=== PATIENT | male | born 1965 | race Two or more races ===

== ENCOUNTER 2020-03-11 15:13 | Emergency (ER) | payer SELFPAY ==
[~2020-03-11] VITALS: Ht 165.1 cm; Wt 79.4 kg
[2020-03-11 15:13] VITALS: BP 164/92
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
--- NOTE | 2020-03-11 15:17 | NUR ---
ED Nurse Note: [employer] @ bedside
--- NOTE | 2020-03-11 15:56 | NUR ---
ED Nurse Note: Pt in radiology
--- NOTE | 2020-03-11 16:23 | NUR ---
ED Nurse Note: urine sent to lab
--- NOTE | 2020-03-11 16:38 | Diagnostic Imaging Report ---
History: TRAUMA Exam: CT HEAD Without Contrast Technique more: CTDI is 53.40 mGy and DLP is 1018.80 mGy-cm. Technique more: One or more of the following dose reduction techniques were used: automated exposure control, adjustment of the mA and/or kV according to patient size, use of iterative reconstruction technique. Comparison: None available FINDINGS: No intracranial hemorrhage, mass effect or calvarial fracture. Posterior scalp soft tissue swelling. The ventricles are within limits and midline. Frothy-appearing air-fluid level within the partially imaged visualized right maxillary sinus. No soft tissue gas identified. The mastoids and orbits appear within limits. IMPRESSION: No intracranial hemorrhage, mass effect or calvarial fracture. Posterior scalp soft tissue swelling. Frothy-appearing air-fluid level within the partially imaged visualized right maxillary sinus. No soft tissue gas identified.
--- NOTE | 2020-03-11 17:38 | Emergency Room Report ---
History of Present Illness General Chief Complaint: Alcohol Intoxication Source: EMS Present Illness HPI 54-year-old male with history of alcoholism brought in by paramedics due to be consulted as he was drinking. [place] [address] Patient appears to be intoxicated. Minor abrasion with minimal bleeding noted on anterior scalp. Complains of loss of consciousness however denies dizziness and headache at this time. Denies nausea vomiting. Has not taken medication for symptom relief. Denies chest pain, abdominal pain, shortness of breath, cough and congestion. Denies fever and chills. Appears to be stable with stable vital signs. Allergies: Coded Allergies: UNABLE TO ASSESS (Unverified , 03/11/20) COVID-19 Screening Contact w/high risk pt: No Recent Travel to affected area: No Experienced COVID-19 symptoms?: No Patient History Past Medical History: see triage record Past Surgical History: unable to obtain Pertinent Family History: unable to obtain Social History: Reports: alcohol use Immunizations: UTD Reviewed Nursing Documentation: PMH: Agreed; PSxH: Agreed Nursing Documentation-PMH Past Medical History: No Stated History Review of Systems All Other Systems: negative except mentioned in HPI Physical Exam Vital Signs Date Time Temp Pulse Resp B/P (MAP) Pulse Ox O2 Delivery O2 Flow Rate FiO2 03/11/20 15:08 99.3 90 18 170/90 (116) 99 Room Air Sp02 EP Interpretation: reviewed, normal General Appearance: mild distress, other - alcohol intoxication Head: other - Abrasion and posterior scalp at the occipital lobe Eyes: bilateral eye normal inspection, bilateral eye PERRL ENT: hearing grossly normal, normal pharynx, no angioedema, normal voice Neck: full range of motion, supple/symm/no masses Respiratory: chest non-tender, lungs clear, normal breath sounds, no rhonchi, no wheezing, speaking full sentences Cardiovascular #1: regular rate, rhythm, no edema, no murmur Gastrointestinal: normal bowel sounds, non tender, soft, non-distended, no guarding, no rebound Rectal: deferred Genitourinary: no CVA tenderness Musculoskeletal: back normal Neurologic: alert, motor strength/tone normal, oriented x3, sensory intact, responsive, speech normal Psychiatric: other - intoxicated Skin: no rash Lymphatic: no adenopathy Medical Decision Making PA Attestation All my diagnosis and treatment plans were reviewed ad discussed with my supervising physician Dr. Maged Diagnostic Impression: Primary Impression: Alcohol intoxication Additional Impressions: Head contusion Abrasion, scalp w/o infection ER Course 54-year-old male with history of alcoholism brought in by paramedics due to be consulted as he was drinking. Patient [place] [address] Patient appears to be intoxicated. Minor abrasion with minimal bleeding noted on anterior scalp. Complains of loss of consciousness however denies dizziness and headache at this time. Denies nausea vomiting. Has not taken medication for symptom relief. Denies chest pain, abdominal pain, shortness of breath, cough and congestion. Denies fever and chills. Appears to be stable with stable vital signs. Ddx considered but are not limited to: Alcohol intoxication with altered level of consciousness, alcohol intoxication causing pancreatitis, alcohol abuse, multi drug use and alcohol intoxication, cerebral hematoma, head contusion, skull fracture, laceration scalp, abrasion scalp Vital signs: are WNL, pt. is afebrile H&PE are most consistent with: Abrasion scalp,head contusion, alcohol intoxication ORDERS: Head CT no contrast, EtOH level, tox screen ER intervention: 3 L of NS bolus, Zofran, Pepcid DISCHARGE: At this time pt. is stable for d/c to home. Will provide printed patient care instructions, and any necessary prescriptions. Care plan and follow up instructions have been discussed with the patient prior to discharge. Patient to follow primary doctor, take medication as directed, if worsening symptom return to emergency room. Avoid drinking alcohol. CT/MRI/US Diagnostic Results CT/MRI/US Diagnostic Results : Imaging Test Ordered: CT head no contrast Impression No intracranial hemorrhage, mass effect or calvarial fracture. Posterior scalp soft tissue swelling. Frothy-appearing air-fluid level within the partially imaged visualized right maxillary sinus. No soft tissue gas identified. Last Vital Signs Date Time Temp Pulse Resp B/P (MAP) Pulse Ox O2 Delivery O2 Flow Rate FiO2 03/11/20 15:13 99.3 88 18 164/92 99 Room Air Disposition: HOME, SELF-CARE Condition: Stable Patient Instructions: Alcohol Intoxication, [id number], Facial or Scalp Contusion, [id number] Additional Instructions: Avoid drinking alcohol, follow primary doctor, if worsening symptom return to emergency room increase oral hydration Rina Scott Mar 11, 2020 17:38
--- NOTE | 2020-03-11 17:44 | NUR ---
ED Nurse Note: Pt A+Ox4, more coherent, able to provide address for where he lives. Address given to registration to put on file
[2020-03-11 18:00] VITALS: BP 158/88
--- NOTE | 2020-03-11 18:00 | NUR ---
ER DISCHARGE NOTE: Patient is cleared to be discharged per ERMD, pt is aox4, on room air, with stable vital signs. pt was given dc and prescription instructions, pt was able to verbalize understanding, pt id band and iv site removed without complications. pt is able to ambulate with steady gait. pt took all belongings.
== END 2020-03-11 18:00 | disposition home or self-care (01) ==
LOC: EDBD 15:13 → EMR 15:30
DX: F10.129 Alcohol abuse with intoxication, unspecified (principal); S00.01XA Abrasion of scalp, initial encounter; S00.93XA Contusion of unspecified part of head, initial encounter; X58.XXXA Exposure to other specified factors, initial encounter; Y92.9 Unspecified place or not applicable; Z59.0 Homelessness
CPT/HCPCS: 36415; 70450; 80307; 96361; 96374; 96375; 99284; G0480; J2405; J7030; S0028

== ENCOUNTER 2020-05-07 14:05 | Inpatient (IN) | payer MEDICAID ==
[~2020-05-07] VITALS: Ht 165.1 cm; Wt 107.7 kg
[2020-05-07 14:10] VITALS: BP 130/76
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
[2020-05-07] MEDS ORDERED: Dicyclomine 10mg Cap ORAL ONE (14:15)
--- NOTE | 2020-05-07 14:32 | NUR ---
ED Nurse Note: urine and blood sample collected and sent to lab.
--- NOTE | 2020-05-07 14:43 | NUR ---
ED Nurse Note: all due medication given at this time, pt tolerated well.
[2020-05-07 14:45] LABS: BASOPHILS % (AUTO) 1.1 % (0.0-2.0); EOSINOPHILS % (AUTO) 2.3 % (0.0-3.0); HEMATOCRIT 35.6 % (42.0-52.0); HEMOGLOBIN 11.9 G/DL (14.2-18.0); LYMPHOCYTES % (AUTO) 23.8 % (20.0-45.0); MEAN CORPUSCULAR VOLUME 95 FL (80-99); MONOCYTES % (AUTO) 7.7 % (1.0-10.0); NEUTROPHILS % (AUTO) 65.1 % (45.0-75.0); PLATELET COUNT 189 K/UL (150-450); RED BLOOD COUNT 3.75 M/UL (4.70-6.10); RED CELL DISTRIBUTION WIDTH 11.8 % (11.6-14.8); WHITE BLOOD COUNT 7.4 K/UL (4.8-10.8)
[2020-05-07 14:47] LABS: APPEARANCE,URINE CLEAR; BILIRUBIN, URINE NEGATIVE (NEGATIVE); COLOR,URINE PALE YELLOW; GLUCOSE, URINE (UA) NEGATIVE (NEGATIVE); KETONES,URINE NEGATIVE (NEGATIVE); LEUKOCYTE ESTERASE ,URINE NEGATIVE (NEGATIVE); NITRITE,URINE NEGATIVE (NEGATIVE); PH,URINE 5 (4.5-8.0); PROTEIN,URINE 3+ (NEGATIVE); UROBILINOGEN,URINE NORMAL MG/DL (0.0-1.0)
[2020-05-07 14:56] LABS: INR 0.9 (0.9-1.1)
[2020-05-07 15:03] LABS: ANION GAP 18 mmol/L (5-15); BLOOD UREA NITROGEN 69 mg/dL (7-18); CALCIUM 7.8 MG/DL (8.5-10.1); CARBON DIOXIDE 17 MMOL/L (21-32); CHLORIDE 89 MMOL/L (98-107); CREATININE 3.3 MG/DL (0.55-1.30); POTASSIUM 4.1 MMOL/L (3.5-5.1); SODIUM 123 MMOL/L (136-145)
--- NOTE | 2020-05-07 15:15 | NUR ---
ED Nurse Note: Report given to GALLITO Hopson. endorced plan of care.
[2020-05-07 15:16] LABS: ALANINE AMINOTRANSFERASE 55 U/L (12-78); ALBUMIN 3.7 G/DL (3.4-5.0); ALBUMIN/GLOBULIN RATIO 0.9 (1.0-2.7); ALKALINE PHOSPHATASE 133 U/L (46-116); ASPARTATE AMINO TRANSFERASE 39 U/L (15-37); BILIRUBIN,TOTAL 0.4 MG/DL (0.2-1.0)
[2020-05-07 19:04] VITALS: BP 122/83
--- NOTE | 2020-05-07 19:06 | NUR ---
ED Nurse Note: report received from mario almonte.
--- NOTE | 2020-05-07 19:08 | NUR ---
ED Nurse Note 3rd bag of NS is being infused at this time. pt tolerating well. will check BMP once fluid is completed.
--- NOTE | 2020-05-07 19:59 | NUR ---
ED Nurse Note: IV NS has been infused. repeat BMP drawn and sent to lab.
[2020-05-07 20:15] LABS: ANION GAP 8 mmol/L (5-15); BLOOD UREA NITROGEN 64 mg/dL (7-18); CALCIUM 6.7 MG/DL (8.5-10.1); CARBON DIOXIDE 15 MMOL/L (21-32); CHLORIDE 96 MMOL/L (98-107); POTASSIUM 4.7 MMOL/L (3.5-5.1)
[2020-05-07 20:23] LABS: SODIUM 118 MMOL/L (136-145)
--- NOTE | 2020-05-07 20:29 | Emergency Room Report ---
History of Present Illness General Chief Complaint: Abdominal Pain Source: Patient (Rina Scott) Present Illness HPI 55-year-old male with no known segment past medical history brought in by paramedics due to alcohol abuse. Patient reports that he has been drinking a lot and has been experiencing epigastric abdominal pain with acid reflux as well as nausea, vomiting and diarrhea. Denies any bloody emesis or bloody diarrhea. Patient sitting comfortably with stable vital signs. Denies any drug use. Denies any cardiac history, diabetes, no other past medical history. Denies tobacco smoke. Appears to be afebrile. (Rina Scott) Allergies: Coded Allergies: No Known Allergies (Unverified , 05/07/20) UNABLE TO ASSESS (Unverified , 03/11/20) COVID-19 Screening Contact w/high risk pt: No Recent Travel to affected area: No Experienced COVID-19 symptoms?: No COVID-19 Testing performed LOSS CONTROL CONSULTANT: No (Rina Scott) Patient History Past Medical History: see triage record Past Surgical History: unable to obtain Pertinent Family History: unable to obtain Social History: Reports: alcohol use Immunizations: UTD Reviewed Nursing Documentation: PMH: Agreed; PSxH: Agreed (Rina Scott) Nursing Documentation-PMH Past Medical History: No History, Except For (Rina Scott) Review of Systems All Other Systems: negative except mentioned in HPI (Rina Scott) Physical Exam Vital Signs Date Time Temp Pulse Resp B/P (MAP) Pulse Ox O2 Delivery O2 Flow Rate FiO2 05/07/20 14:06 98.1 83 18 128/68 (88) 97 Room Air Sp02 EP Interpretation: reviewed, normal General Appearance: no apparent distress, alert, GCS 15, non-toxic Head: normocephalic, atraumatic Eyes: bilateral eye normal inspection, bilateral eye PERRL ENT: hearing grossly normal, normal pharynx, no angioedema, normal voice Neck: full range of motion, supple/symm/no masses Respiratory: chest non-tender, lungs clear, normal breath sounds, no rhonchi, no respiratory distress, no retraction, speaking full sentences Cardiovascular #1: regular rate, rhythm, no edema, no JVD, no murmur Cardiovascular #2: 2+ carotid (R), 2+ carotid (L), 2+ radial (R), 2+ radial (L) , 2+ dorsalis pedis (R), 2+ dorsalis pedis (L) Gastrointestinal: normal bowel sounds, non tender, soft, non-distended, no guarding, no rebound Rectal: deferred Genitourinary: no CVA tenderness Neurologic: alert, motor strength/tone normal, oriented x3, sensory intact, responsive, speech normal Psychiatric: judgement/insight normal, no suicidal/homicidal ideation Skin: no rash Lymphatic: no adenopathy (Rina Scott) Medical Decision Making PA Attestation All diagnoses and treatment plans were reviewed and discussed with my supervising physician Dr. Smith (Rina Scott) PA Attestation I participated in the care of this patient along with DARRYL Blackmon Briefly, this a 55-year-old male history of alcohol abuse presenting for abdominal discomfort. He was drinking a lot of beer today and over the past few days. Labs show elevated BUN and creatinine consistent with acute kidney injury and low sodium. Likely malnutrition from excessive beer intake. Initial alcohol level elevated. Patient has been monitored in the emergency department received 3 L IV fluids without significant improvement in his sodium or kidney function. He is clinically sober at this time. He will require admission for hyponatremia and acute kidney injury. Vital signs are within normal limits. Admitted to panel physician, Dr. Misa Gilliland. (Shiva Smith MD) Diagnostic Impression: Primary Impression: Hyponatremia Additional Impressions: ABELINO (acute kidney injury) Alcohol intoxication ER Course 55-year-old male with no known segment past medical history brought in by paramedics due to alcohol abuse. Patient reports that he has been drinking a lot and has been experiencing epigastric abdominal pain with acid reflux as well as nausea, vomiting and diarrhea. Denies any bloody emesis or bloody diarrhea. Patient sitting comfortably with stable vital signs. Denies any drug use. Denies any cardiac history, diabetes, no other past medical history. Denies tobacco smoke. Appears to be afebrile. Ddx considered but are not limited to: Alcohol intoxication, alcohol abuse, liver cirrhosis, fatty liver, Vital signs: are WNL, pt. is afebrile H&PE are most consistent with: Hyponatremia, ABELINO ,alcohol intoxication, abdominal pain ORDERS: abdominal pain order set ED INTERVENTIONS: 3L NS bolus, zofran, pepcid, toradol Patient was admitted with diagnosis of hyponatremia, ABELINO to under supervision of : Sarah pt stable at time of admission (Rina Scott) Last Vital Signs Date Time Temp Pulse Resp B/P (MAP) Pulse Ox O2 Delivery O2 Flow Rate FiO2 05/07/20 19:04 98.0 82 18 122/83 98 Room Air (Rina Scott) Disposition: ADMITTED INPATIENT Condition: Stable Referrals: NON PHYSICIAN (PCP) Rina Scott May 07, 2020 20:29 Shiva Smith MD May 07, 2020 22:05
[2020-05-07 20:57] VITALS: BP 128/77
--- NOTE | 2020-05-07 20:57 | NUR ---
ED Nurse Note: pt in bed resting, no acute distress is noted. VSS as documented. will continue to monitor.
--- NOTE | 2020-05-07 22:05 | NUR ---
ED Nurse Note: Report given to GALLITO Henderson from [facility]
[2020-05-07 22:09] VITALS: BP 144/82
--- NOTE | 2020-05-07 22:09 | NUR ---
NURSE NOTES: Pt arrived in the unit accompanied by Cecilia ED RN via wheelchair with the pt's belongings in the bag. Pt is awake, comfortably resting. No signs of acute distress noted. Pt denies any pain at this time. AOx4; able to make needs known. Mainly Yi speaking but can understand and speak some Pashto. Checked IV site; patent and flushed. No erythema, bleeding, or infiltration noted. Pt's belongings' list signed and checked with pt and ED RN. Bed at lowest position. Pt oriented to the room, call light, TV, and bathroom. Pt is stable on feet. Call light within reach. Siderails up x2. Will continue to monitor.
--- NOTE | 2020-05-07 22:10 | NUR ---
ED Nurse Note: pt taken to room 418 accompanied by RN via w/c in stable condition. Belonging list signed off.
--- NOTE | 2020-05-07 22:28 | NUR ---
NURSE NOTES: MD made aware of pt's arrival in the unit. RN called MD for full admit orders. Awaiting callback.
[2020-05-07] MEDS ORDERED: LORazepam Inj 2mg/ml 1ml IVP PRN (22:45)
[2020-05-07] MEDS ORDERED: HYDROcodone/Acetamin 10/325 tab ORAL PRN (22:45)
[2020-05-07] MEDS ORDERED: HYDROcodone/Acetamin 5/325 tab ORAL PRN (22:45)
[2020-05-08] VITALS: BP 136/78
[2020-05-08 04:00] VITALS: BP 140/76
[2020-05-08 05:56] LABS: BASOPHILS % (AUTO) 1.6 % (0.0-2.0); EOSINOPHILS % (AUTO) 2.3 % (0.0-3.0); HEMATOCRIT 32.9 % (42.0-52.0); HEMOGLOBIN 10.8 G/DL (14.2-18.0); LYMPHOCYTES % (AUTO) 14.5 % (20.0-45.0); MEAN CORPUSCULAR VOLUME 96 FL (80-99); MONOCYTES % (AUTO) 6.4 % (1.0-10.0); NEUTROPHILS % (AUTO) 75.3 % (45.0-75.0); PLATELET COUNT 147 K/UL (150-450); RED BLOOD COUNT 3.43 M/UL (4.70-6.10); RED CELL DISTRIBUTION WIDTH 12.1 % (11.6-14.8)
[2020-05-08 06:28] LABS: ALANINE AMINOTRANSFERASE 54 U/L (12-78); ALBUMIN 3.3 G/DL (3.4-5.0); ALKALINE PHOSPHATASE 98 U/L (46-116); ANION GAP 15 mmol/L (5-15); ASPARTATE AMINO TRANSFERASE 40 U/L (15-37); BILIRUBIN,TOTAL 0.2 MG/DL (0.2-1.0); BLOOD UREA NITROGEN 59 mg/dL (7-18); CALCIUM 7.4 MG/DL (8.5-10.1); CARBON DIOXIDE 14 MMOL/L (21-32); CHLORIDE 105 MMOL/L (98-107); PHOSPHORUS 5.4 MG/DL (2.5-4.9); POTASSIUM 5.1 MMOL/L (3.5-5.1); SODIUM 134 MMOL/L (136-145)
--- NOTE | 2020-05-08 07:12 | NUR ---
NURSE NOTES: Received report from GALLITO Bonner. Patient is received standing in room with steady gait drinking juice. Pt is AAO x 4, able to make needs known, follows commands, ambulatory, on RA with no s/s of respiratory distress noted at this time. Pt is continent to both bowel and bladder fx uses urinal and bathroom. pIV on R AC 20 g running NS at 100 ml/hr. IV site with no s/s of infiltration. Skin intact. Patient educated on safety precautions. He verbalized understanding of instructions. Will continue POC.
--- NOTE | 2020-05-08 07:31 | NUR ---
HAND-OFF: Report given to GALLITO Cornelius. Pt is awake and in stable condition. Plan of care endorsed.
[2020-05-08 08:00] VITALS: BP 141/85
[2020-05-08] MEDS: Thiamine 100mg in D5W 55ml IVPB SCH (08:18)
[2020-05-08] MEDS: Folic Acid 1 MG, Magnesium Sulfate 2,000 MG, Multivitamin - 12 Injection 10 ML in Sodiu... IV SCH (08:26)
[2020-05-08] MEDS ORDERED: Heparin 5000 units/ml inj SUBQ SCH (09:00)
--- NOTE | 2020-05-08 09:35 | NUR ---
NURSE NOTES: Called Dr. Garzon to clarify IVF orders. S/w Dr. Turner covering for Dr. Garzon and received order to continue IVF of NS at 100 ml/hr and hold banana bag for now.
[2020-05-08 12:00] VITALS: BP 151/99
--- NOTE | 2020-05-08 14:28 | NUR ---
CASE MANAGEMENT:INITIAL REVIEW 55 YR OLD MALE [facility];ABDOMINAL PAIN SI;HYPONATREMIA. ACUTE KIDNEY INJURY. ETOH INTOXICATION. 98.1 90 18 130/76 97% ON RA NA 118 CO2 15 BUN 69 CR 3.3 AST 39 ALK PHOS 133 UA+ PROTEIN, BLOOD URINE TOX ~ NEGATIVE IS;BENTYL PO PEPCID IV ZOFRAN IV IVF NS BOLUS ADMITTED TO MED SURG MED SURG STATUS DCP;PATIENT IS FROM HOME
[2020-05-08 16:00] VITALS: BP 148/80
--- NOTE | 2020-05-08 16:35 | History and Physical ---
History of Present Illness General Date patient seen: May 08, 2020 Time patient seen: 10:05 Reason for Hospitalization: Abdominal Pain Present Illness HPI 55-year-old male with no known past medical history brought in by paramedics due to alcohol abuse. Patient reports that he has been drinking a lot and has been experiencing epigastric abdominal pain with acid reflux as well as nausea, vomiting and diarrhea. Denies any bloody emesis or bloody diarrhea. Patient sitting comfortably with stable vital signs. Denies any drug use. Denies any cardiac history, diabetes, no other past medical history. Denies tobacco smoke. Appears to be afebrile. Above history confirmed with patient at bedside. Patient denies sob, cp, rivers, dizziness. No seizures overnight Patient states he sees a PCP and was taking bp medication as well as spironolactone and lasix. Allergies: Coded Allergies: No Known Allergies (Unverified , 05/07/20) COVID-19 Screening Contact w/high risk pt: No Recent Travel to affected area: No Experienced COVID-19 symptoms?: No Patient History History Provided By: Patient - spoke to patient in [place] Healthcare decision maker Resuscitation status FULL Advanced Directive on File Social History Social History: (1) Alcohol intoxication Review of Systems All Other Systems: negative except mentioned in HPI Physical Exam General Appearance: no apparent distress, alert, obese Lines, tubes and drains: peripheral HEENT: normocephalic, atraumatic Neck: normal alignment Respiratory/Chest: lungs clear, normal breath sounds Cardiovascular/Chest: normal peripheral pulses, normal rate, regular rhythm Abdomen: non tender, soft, no organomegaly Extremities: non-tender, normal inspection, no calf tenderness Musculoskeletal: normal muscle bulk Last 24 Hour Vital Signs Date Time Temp Pulse Resp B/P (MAP) Pulse Ox O2 Delivery O2 Flow Rate FiO2 05/08/20 12:00 99.7 76 18 151/99 (116) 98 05/08/20 09:00 Room Air 05/08/20 08:00 99.0 74 18 141/85 (103) 98 05/08/20 04:00 97.9 72 18 140/76 (97) 98 05/08/20 00:00 97.5 68 15 136/78 (97) 98 05/07/20 22:37 Room Air 05/07/20 22:10 98.0 81 16 136/72 98 Room Air 05/07/20 22:09 97.1 75 17 144/82 (102) 98 05/07/20 20:57 98.0 85 18 128/77 97 Room Air 05/07/20 19:04 98.0 82 18 122/83 98 Room Air Intake and Output 05/07/20 05/08/20 19:00 07:00 Intake Total 2000 ml 4000 ml Balance 2000 ml 4000 ml Intake Oral 0 ml IV Total 2000 ml 4000 ml # Voids 1 8 Laboratory Tests Test 05/07/20 19:47 05/08/20 05:27 Sodium Level 118 MMOL/L (136-145) *L 134 MMOL/L (136-145) #L Potassium Level 4.7 MMOL/L (3.5-5.1) 5.1 MMOL/L (3.5-5.1) Chloride Level 96 MMOL/L (98-107) L 105 MMOL/L (98-107) Carbon Dioxide Level 15 MMOL/L (21-32) L 14 MMOL/L (21-32) L Anion Gap 8 mmol/L (5-15) 15 mmol/L (5-15) Blood Urea Nitrogen 64 mg/dL (7-18) H 59 mg/dL (7-18) H Creatinine 3.0 MG/DL (0.55-1.30) H 3.0 MG/DL (0.55-1.30) H Estimat Glomerular Filtration Rate 21.8 mL/min (>60) 21.8 mL/min (>60) Glucose Level 103 MG/DL (74-106) 91 MG/DL (74-106) Calcium Level 6.7 MG/DL (8.5-10.1) L 7.4 MG/DL (8.5-10.1) L White Blood Count 4.0 K/UL (4.8-10.8) L Red Blood Count 3.43 M/UL (4.70-6.10) L Hemoglobin 10.8 G/DL (14.2-18.0) L Hematocrit 32.9 % (42.0-52.0) L Mean Corpuscular Volume 96 FL (80-99) Mean Corpuscular Hemoglobin 31.4 PG (27.0-31.0) H Mean Corpuscular Hemoglobin Concent 32.7 G/DL (32.0-36.0) Red Cell Distribution Width 12.1 % (11.6-14.8) Platelet Count 147 K/UL (150-450) L Mean Platelet Volume 8.8 FL (6.5-10.1) Neutrophils (%) (Auto) 75.3 % (45.0-75.0) H Lymphocytes (%) (Auto) 14.5 % (20.0-45.0) L Monocytes (%) (Auto) 6.4 % (1.0-10.0) Eosinophils (%) (Auto) 2.3 % (0.0-3.0) Basophils (%) (Auto) 1.6 % (0.0-2.0) Phosphorus Level 5.4 MG/DL (2.5-4.9) H Magnesium Level 2.6 MG/DL (1.8-2.4) H Total Bilirubin 0.2 MG/DL (0.2-1.0) Aspartate Amino Transf (AST/SGOT) 40 U/L (15-37) H Alanine Aminotransferase (ALT/SGPT) 54 U/L (12-78) Alkaline Phosphatase 98 U/L (46-116) Total Protein 6.7 G/DL (6.4-8.2) Albumin 3.3 G/DL (3.4-5.0) L Globulin 3.4 g/dL Albumin/Globulin Ratio 1.0 (1.0-2.7) Thyroid Stimulating Hormone (TSH) 2.864 uiU/mL (0.358-3.740) Free Thyroxine 0.76 NG/DL (0.76-1.46) Free Triiodothyronine 2.0 pg/mL (2.3-4.2) L Height (Feet): 5 Height (Inches): 5.00 Weight (Pounds): 240 Medications Current Medications Medications (Trade) Dose Ordered Sig/Neelam Route PRN Reason Start Time Stop Time Status Last Admin Dose Admin Acetaminophen/ Hydrocodone Bitart ([place] 10/325) 1 tab Q4H PRN ORAL For Severe Pain 05/07/20 22:45 05/14/20 22:44 Acetaminophen/ Hydrocodone Bitart ([place] 5/325) 1 tab Q4H PRN ORAL Moderate Pain (Pain Scale 4-6) 05/07/20 22:45 05/14/20 22:44 Folic Acid 1 mg/ Magnesium Sulfate 2000 mg/ Multivitamins 10 ml/Sodium Chloride 1,014.2 ml @ 125 mls/ hr Q24H IV 05/08/20 08:00 06/07/20 07:59 05/08/20 08:26 Heparin Sodium (Porcine) (Heparin 5000 units/ml) 5,000 units EVERY 12 HOURS SUBQ 05/08/20 21:00 06/22/20 08:59 Lorazepam (Ativan 2mg/ml 1ml) 1 mg Q3H PRN IVP For agitation 05/07/20 22:45 05/14/20 22:44 Ondansetron HCl (Zofran) 4 mg Q4HR PRN IVP Nausea & Vomiting 05/07/20 22:45 06/06/20 22:44 05/08/20 10:20 Thiamine HCl 100 mg/Dextrose 56 ml @ 112 mls/hr Q24H IVPB 05/08/20 08:00 06/07/20 07:59 05/08/20 08:18 Assessment/Plan Problem List: (1) Acute renal failure ICD Codes: N17.9 - Acute kidney failure, unspecified SNOMED: 81898062 (2) Transaminitis ICD Codes: R74.0 - Nonspecific elevation of levels of transaminase and lactic acid dehydrogenase [LDH] SNOMED: 744470505, 024723488 (3) ABELINO (acute kidney injury) ICD Codes: N17.9 - Acute kidney failure, unspecified SNOMED: 39611762, 9253228 (4) Alcohol intoxication ICD Codes: F10.929 - Alcohol use, unspecified with intoxication, unspecified SNOMED: 72567050 (5) Hyponatremia ICD Codes: E87.1 - Hypo-osmolality and hyponatremia SNOMED: 49937100 Status: doing well Assessment/Plan: 55-year-old male with no known past medical history brought in by paramedics due to alcohol abuse. Patient reports that he has been drinking a lot and has been experiencing epigastric abdominal pain with acid reflux as well as nausea, vomiting and diarrhea. Denies any bloody emesis or bloody diarrhea. Patient sitting comfortably with stable vital signs. Denies any drug use. Denies any cardiac history, diabetes, no other past medical history. Denies tobacco smoke. Appears to be afebrile. Above history confirmed with patient at bedside. Patient denies sob, cp, rivers, dizziness. No seizures overnight Patient states he sees a PCP and was taking bp medication as well as spironolactone and lasix. # Hyponatremia 2/2 medication induced and N/V - improved - hold NS and repeat bmp - hold home spironolactone and lasix - lytes and osmols - TSH wnl # ABELINO - f/u renal us - dw Nephro - lytes and osmols - I/O's - UA: neg # Nausea/Vomitting / Diarrhea 2/2 Etoh intoxication vs gastroenteritis - symptoms resolved - f/u abd us - ctm cmp # Anemia - f/u iron panel, b12, folate # HTN - unsure why patient is on lasix and spironolactone - f/u TTE- f/u CXR - hold meds I have spent 72 minutes on this case with >50% on care coordination and counseling Time of note may not reflect time of encounter Radha Turner DO May 08, 2020 16:35
--- NOTE | 2020-05-08 17:10 | NUR ---
NURSE NOTES: Pt collection cup provided at bedside for urine specimen needed as ordered. Instructed pt to fill cup. Will continue to monitor. Pt provided RN his Medi-dereje # he wrote down. Filed paper with number into chart and faxed to admitting.
--- NOTE | 2020-05-08 17:22 | NUR ---
NURSE NOTES: Urine specimen collected for urine osmolality sent to lab.
--- NOTE | 2020-05-08 18:46 | Consultation ---
History of Present Illness General Chief Complaint: Abdominal Pain Reason for Consultation: ABELINO, hyponatremia Present Illness HPI 55-year-old male with no known past medical history brought in by paramedics due to alcohol abuse. Patient reports that he has been drinking a lot and has been experiencing epigastric abdominal pain with acid reflux as well as nausea, vomiting and diarrhea. Denies any bloody emesis or bloody diarrhea. Patient sitting comfortably with stable vital signs. Denies any drug use. Denies any cardiac history, diabetes, no other past medical history. Denies tobacco smoke. Appears to be afebrile. Above history confirmed with patient at bedside. Patient denies sob, cp, rivers, dizziness. No seizures overnight Patient states he sees a PCP and was taking bp medication as well as spironolactone and lasix. Allergies: Coded Allergies: No Known Allergies (Unverified , 05/07/20) Patient History Healthcare decision maker Resuscitation status Advanced Directive on File Review of Systems All Other Systems: negative except mentioned in HPI Physical Exam General Appearance: WD/WN, no apparent distress Lines, tubes and drains: peripheral HEENT: normocephalic, atraumatic Neck: non-tender, normal alignment Respiratory/Chest: chest wall non-tender, lungs clear Cardiovascular/Chest: normal peripheral pulses, normal rate, regular rhythm Abdomen: normal bowel sounds, non tender Extremities: normal range of motion, non-tender Last 24 Hour Vital Signs Date Time Temp Pulse Resp B/P (MAP) Pulse Ox O2 Delivery O2 Flow Rate FiO2 05/08/20 16:00 98.1 72 18 148/80 (102) 99 05/08/20 12:00 99.7 76 18 151/99 (116) 98 05/08/20 09:00 Room Air 05/08/20 08:00 99.0 74 18 141/85 (103) 98 05/08/20 04:00 97.9 72 18 140/76 (97) 98 05/08/20 00:00 97.5 68 15 136/78 (97) 98 05/07/20 22:37 Room Air 05/07/20 22:10 98.0 81 16 136/72 98 Room Air 05/07/20 22:09 97.1 75 17 144/82 (102) 98 05/07/20 20:57 98.0 85 18 128/77 97 Room Air 05/07/20 19:04 98.0 82 18 122/83 98 Room Air Intake and Output 05/07/20 05/08/20 19:00 07:00 Intake Total 2000 ml 4000 ml Balance 2000 ml 4000 ml Intake Oral 0 ml IV Total 2000 ml 4000 ml # Voids 1 8 Laboratory Tests Test 05/07/20 19:47 05/08/20 05:27 05/08/20 17:00 05/08/20 17:15 Sodium Level 118 MMOL/L (136-145) *L 134 MMOL/L (136-145) #L Potassium Level 4.7 MMOL/L (3.5-5.1) 5.1 MMOL/L (3.5-5.1) Chloride Level 96 MMOL/L (98-107) L 105 MMOL/L (98-107) Carbon Dioxide Level 15 MMOL/L (21-32) L 14 MMOL/L (21-32) L Anion Gap 8 mmol/L (5-15) 15 mmol/L (5-15) Blood Urea Nitrogen 64 mg/dL (7-18) H 59 mg/dL (7-18) H Creatinine 3.0 MG/DL (0.55-1.30) H 3.0 MG/DL (0.55-1.30) H Estimat Glomerular Filtration Rate 21.8 mL/min (>60) 21.8 mL/min (>60) Glucose Level 103 MG/DL (74-106) 91 MG/DL (74-106) Calcium Level 6.7 MG/DL (8.5-10.1) L 7.4 MG/DL (8.5-10.1) L White Blood Count 4.0 K/UL (4.8-10.8) L Red Blood Count 3.43 M/UL (4.70-6.10) L Hemoglobin 10.8 G/DL (14.2-18.0) L Hematocrit 32.9 % (42.0-52.0) L Mean Corpuscular Volume 96 FL (80-99) Mean Corpuscular Hemoglobin 31.4 PG (27.0-31.0) H Mean Corpuscular Hemoglobin Concent 32.7 G/DL (32.0-36.0) Red Cell Distribution Width 12.1 % (11.6-14.8) Platelet Count 147 K/UL (150-450) L Mean Platelet Volume 8.8 FL (6.5-10.1) Neutrophils (%) (Auto) 75.3 % (45.0-75.0) H Lymphocytes (%) (Auto) 14.5 % (20.0-45.0) L Monocytes (%) (Auto) 6.4 % (1.0-10.0) Eosinophils (%) (Auto) 2.3 % (0.0-3.0) Basophils (%) (Auto) 1.6 % (0.0-2.0) Phosphorus Level 5.4 MG/DL (2.5-4.9) H Magnesium Level 2.6 MG/DL (1.8-2.4) H Total Bilirubin 0.2 MG/DL (0.2-1.0) Aspartate Amino Transf (AST/SGOT) 40 U/L (15-37) H Alanine Aminotransferase (ALT/SGPT) 54 U/L (12-78) Alkaline Phosphatase 98 U/L (46-116) Total Protein 6.7 G/DL (6.4-8.2) Albumin 3.3 G/DL (3.4-5.0) L Globulin 3.4 g/dL Albumin/Globulin Ratio 1.0 (1.0-2.7) Thyroid Stimulating Hormone (TSH) 2.864 uiU/mL (0.358-3.740) Free Thyroxine 0.76 NG/DL (0.76-1.46) Free Triiodothyronine 2.0 pg/mL (2.3-4.2) L Osmolality Pending Urine Osmolality Pending Height (Feet): 5 Height (Inches): 5.00 Weight (Pounds): 240 Medications Current Medications Medications (Trade) Dose Ordered Sig/Neelam Route PRN Reason Start Time Stop Time Status Last Admin Dose Admin Acetaminophen/ Hydrocodone Bitart ([place] 10/325) 1 tab Q4H PRN ORAL For Severe Pain 05/07/20 22:45 05/14/20 22:44 Acetaminophen/ Hydrocodone Bitart ([place] 5/325) 1 tab Q4H PRN ORAL Moderate Pain (Pain Scale 4-6) 05/07/20 22:45 05/14/20 22:44 Folic Acid 1 mg/ Magnesium Sulfate 2000 mg/ Multivitamins 10 ml/Sodium Chloride 1,014.2 ml @ 125 mls/ hr Q24H IV 05/08/20 08:00 06/07/20 07:59 05/08/20 08:26 Heparin Sodium (Porcine) (Heparin 5000 units/ml) 5,000 units EVERY 12 HOURS SUBQ 05/08/20 21:00 06/22/20 08:59 Lorazepam (Ativan 2mg/ml 1ml) 1 mg Q3H PRN IVP For agitation 05/07/20 22:45 05/14/20 22:44 Ondansetron HCl (Zofran) 4 mg Q4HR PRN IVP Nausea & Vomiting 05/07/20 22:45 06/06/20 22:44 05/08/20 10:20 Thiamine HCl 100 mg/Dextrose 56 ml @ 112 mls/hr Q24H IVPB 05/08/20 08:00 06/07/20 07:59 05/08/20 08:18 Assessment/Plan Diagnosis [place] I: #ABELINO- likely with CKD IV- renal US with medical renal disease- ABELINO component due to -pre-renal azotemia #Hyponatremia- hypovolumic in the setting fo lasix and aldactone ## Nausea/Vomitting / Diarrhea 2/2 Etoh intoxication vs gastroenteritis # Anemia # HTN - hold lasix and aldactone - hold further IVF - monitor PO intake - starte sodium bicarb 600 BID - check PTH/vitamin D - echo - iron panel - strict I&Os - daily weight I have spent 70 minutes on this case with >50% on care coordination and counseling Nelida Coronel M.D. May 08, 2020 18:46
[2020-05-08 19:17] LABS: APPEARANCE,URINE CLEAR; BILIRUBIN, URINE NEGATIVE (NEGATIVE); COLOR,URINE PALE YELLOW; GLUCOSE, URINE (UA) NEGATIVE (NEGATIVE); KETONES,URINE NEGATIVE (NEGATIVE); LEUKOCYTE ESTERASE ,URINE NEGATIVE (NEGATIVE); NITRITE,URINE NEGATIVE (NEGATIVE); PH,URINE 6 (4.5-8.0); PROTEIN,URINE 3+ (NEGATIVE); UROBILINOGEN,URINE NORMAL MG/DL (0.0-1.0)
[2020-05-08 19:18] LABS: ANION GAP 15 mmol/L (5-15); BLOOD UREA NITROGEN 67 mg/dL (7-18); CALCIUM 7.9 MG/DL (8.5-10.1); CARBON DIOXIDE 15 MMOL/L (21-32); CHLORIDE 108 MMOL/L (98-107); CREATININE 2.9 MG/DL (0.55-1.30); POTASSIUM 4.5 MMOL/L (3.5-5.1); SODIUM 138 MMOL/L (136-145)
[2020-05-08 20:00] VITALS: BP 143/77
--- NOTE | 2020-05-08 20:00 | NUR ---
NURSE NOTES: Received patient awake, sitting up on side of bed. AOx4. No s/s of acute distress, no c/o pain at this time. Patient stated he "is feeling better today". Bed low and locked. Needs attended to at this time.
[2020-05-08] MEDS: Heparin 5000 units/ml inj SUBQ SCH (21:29)
[2020-05-09 04:00] VITALS: BP 147/79
[2020-05-09 06:25] LABS: BASOPHILS % (AUTO) 0.9 % (0.0-2.0); EOSINOPHILS % (AUTO) 2.8 % (0.0-3.0); HEMATOCRIT 32.4 % (42.0-52.0); HEMOGLOBIN 10.6 G/DL (14.2-18.0); LYMPHOCYTES % (AUTO) 16.1 % (20.0-45.0); MEAN CORPUSCULAR VOLUME 97 FL (80-99); MONOCYTES % (AUTO) 11.4 % (1.0-10.0); NEUTROPHILS % (AUTO) 68.8 % (45.0-75.0); PLATELET COUNT 130 K/UL (150-450); RED BLOOD COUNT 3.36 M/UL (4.70-6.10); RED CELL DISTRIBUTION WIDTH 12.6 % (11.6-14.8); WHITE BLOOD COUNT 3.5 K/UL (4.8-10.8)
[2020-05-09 07:05] LABS: ANION GAP 13 mmol/L (5-15); BLOOD UREA NITROGEN 58 mg/dL (7-18); CALCIUM 7.9 MG/DL (8.5-10.1); CARBON DIOXIDE 17 MMOL/L (21-32); CHLORIDE 112 MMOL/L (98-107); PHOSPHORUS 4.6 MG/DL (2.5-4.9); POTASSIUM 4.2 MMOL/L (3.5-5.1); SODIUM 142 MMOL/L (136-145)
[2020-05-09 07:12] LABS: % IRON SATURATION 46 % (15-50); IRON 154 ug/dL (50-175); TOTAL IRON BINDING CAPACITY 337 ug/dL (250-450)
--- NOTE | 2020-05-09 07:25 | NUR ---
NURSE NOTES: Received patient in bed. Awake, A/O x4. On room air. Denies pain at this time. IV in the Right AC and Left hand, sites intact. Bed low and locked.
[2020-05-09 08:00] VITALS: BP 140/75
[2020-05-09] MEDS: Folic Acid 1 MG, Magnesium Sulfate 2,000 MG, Multivitamin - 12 Injection 10 ML in Sodiu... IV SCH (08:12)
[2020-05-09] MEDS: Thiamine 100mg in D5W 55ml IVPB SCH (08:13)
--- NOTE | 2020-05-09 08:35 | NUR ---
NURSE NOTES: Patient refused subcut heparin injection x3. Patient re-educated on risks and benefits.
[2020-05-09] MEDS: Heparin 5000 units/ml inj SUBQ SCH ×2 (08:36→21:14)
--- NOTE | 2020-05-09 10:22 | Diagnostic Imaging Report ---
Procedure: XRAY Chest 1v Reason for study: Chest pain. Comparison films: None. FINDINGS: A single one view chest is obtained. Vascularity is normal. The lung escalante are clear bilaterally. Cardiac and mediastinal silhouette are within normal limits. CP angles are sharp. The bony thorax appear unremarkable. IMPRESSION: NO ACUTE CARDIOPULMONARY DISEASE.
--- NOTE | 2020-05-09 11:05 | Diagnostic Imaging Report ---
EXAM: ULTRASOUND US Renal Comp CLINICAL HISTORY: Abdominal pain. COMPARISON: None TECHNIQUE: Ultrasound examination of the kidneys includes grayscale images, and color and spectral doppler analysis. FINDINGS: The right kidney measures 11.1 x 5.2 x 7 cm and the left kidney measures 9.9 x 4.9 x 5.9 cm. Both kidneys are echogenic likely reflecting medical renal disease. There is a small left renal cyst. There is no hydronephrosis or stone seen bilaterally. Urinary bladder appears unremarkable. IMPRESSION: ECHOGENIC KIDNEYS LIKELY REFLECTING MEDICAL RENAL DISEASE. SMALL LEFT RENAL CYST. NO OBSTRUCTIVE UROPATHY.
[2020-05-09 12:00] VITALS: BP 154/88
--- NOTE | 2020-05-09 12:09 | General Progress Note ---
Assessment/Plan Problem List: (1) Acute renal failure ICD Codes: N17.9 - Acute kidney failure, unspecified SNOMED: 53688100 (2) Transaminitis ICD Codes: R74.0 - Nonspecific elevation of levels of transaminase and lactic acid dehydrogenase [LDH] SNOMED: 270401408, 073321519 (3) ABELINO (acute kidney injury) ICD Codes: N17.9 - Acute kidney failure, unspecified SNOMED: 09251808, 9404104 (4) Alcohol intoxication ICD Codes: F10.929 - Alcohol use, unspecified with intoxication, unspecified SNOMED: 27294978 (5) Hyponatremia ICD Codes: E87.1 - Hypo-osmolality and hyponatremia SNOMED: 52908653 Status: doing well Assessment/Plan: 55-year-old male with no known past medical history brought in by paramedics due to alcohol abuse. Patient reports that he has been drinking a lot and has been experiencing epigastric abdominal pain with acid reflux as well as nausea, vomiting and diarrhea. Denies any bloody emesis or bloody diarrhea. Patient sitting comfortably with stable vital signs. Denies any drug use. Denies any cardiac history, diabetes, no other past medical history. Denies tobacco smoke. Appears to be afebrile. Above history confirmed with patient at bedside. Patient denies sob, cp, rivers, dizziness. No seizures overnight Patient states he sees a PCP and was taking bp medication as well as spironolactone and lasix. # Hyponatremia 2/2 medication induced and N/V resolved -Monitor BMP - hold home spironolactone and lasix - lytes and osmols - TSH wnl # ABELINO; this appears to be more likely chronic kidney disease - f/u renal us - dw Nephro - lytes and osmols - I/O's - UA: neg # Nausea/Vomitting / Diarrhea 2/2 Etoh intoxication vs gastroenteritis - symptoms resolved - f/u abd us - ctm cmp # Anemia #Pancytopenia -Hematology consult - f/u iron panel, b12, folate # HTN - unsure why patient is on lasix and spironolactone - f/u TTE - f/u CXR - hold meds I have spent 72 minutes on this case with >50% on care coordination and counseling Time of note may not reflect time of encounter Subjective Date patient seen: May 09, 2020 Time patient seen: 07:45 ROS Limited/Unobtainable: No Allergies: Coded Allergies: No Known Allergies (Unverified , 05/07/20) All Systems: reviewed and negative except above Subjective Patient denies nausea, vomiting, abdominal pain, diarrhea, dizziness, shortness of breath, chest pain. States he is urinating well Discussed with patient his kidney function, he states he has never been diagnosed with kidney disease Objective Last 24 Hour Vital Signs Date Time Temp Pulse Resp B/P (MAP) Pulse Ox O2 Delivery O2 Flow Rate FiO2 05/09/20 09:00 Room Air 05/09/20 08:00 97.6 75 18 140/75 (96) 98 05/09/20 04:00 97.3 72 18 147/79 (101) 98 05/08/20 21:32 Room Air 05/08/20 20:00 97.9 70 18 143/77 (99) 98 05/08/20 16:00 98.1 72 18 148/80 (102) 99 Intake and Output 05/08/20 05/09/20 19:00 07:00 Intake Total 1261 ml 150 ml Balance 1261 ml 150 ml Intake Oral 1080 ml 150 ml IV Total 181 ml # Voids 5 2 # Bowel Movements 1 Laboratory Tests 05/08/20 17:00: Sodium Level 138, Potassium Level 4.5, Chloride Level 108H, Carbon Dioxide Level 15L, Anion Gap 15, Blood Urea Nitrogen 67H, Creatinine 2.9H, Estimat Glomerular Filtration Rate 22.7, Glucose Level 115H, Osmolality 308, Calcium Level 7.9L 05/08/20 17:15: Urine Color Pale yellow, Urine Appearance Clear, Urine pH 6, Urine Specific [place] 1.010, Urine Protein 3+H, Urine Glucose (UA) Negative, Urine Ketones Negative, Urine Blood 2+H, Urine Nitrite Negative, Urine Bilirubin Negative, Urine Urobilinogen Normal, Urine Leukocyte Esterase Negative, Urine RBC 0-2H, Urine WBC 0, Urine Squamous Epithelial Cells Occasional, Urine Bacteria None, Urine Osmolality 350L, Urine Random Total Protein 101H, Urine Creatinine 33.0 05/09/20 05:10: Sodium Level 142, Potassium Level 4.2, Chloride Level 112H, Carbon Dioxide Level 17L, Anion Gap 13, Blood Urea Nitrogen 58H, Creatinine 3.0H, Estimat Glomerular Filtration Rate 21.8, Glucose Level 100, Calcium Level 7.9L, White Blood Count 3.5L, Red Blood Count 3.36L, Hemoglobin 10.6L, Hematocrit 32.4L, Mean Corpuscular Volume 97, Mean Corpuscular Hemoglobin 31.5H, Mean Corpuscular Hemoglobin Concent 32.6, Red Cell Distribution Width 12.6, Platelet Count 130L, Mean Platelet Volume 7.3, Neutrophils (%) (Auto) 68.8, Lymphocytes (%) (Auto) 16.1L, Monocytes (%) (Auto) 11.4H, Eosinophils (%) (Auto) 2.8, Basophils (%) ( Auto) 0.9, Calcium (Send out) [Pending], Phosphorus Level 4.6, Magnesium Level 2.5H, Iron Level 154, Total Iron Binding Capacity 337, Percent Iron Saturation 46, Unsaturated Iron Binding 183, Vitamin B12 Level 504, Vitamin D 25-Hydroxy [ Pending], 25-Hydroxy Vitamin D2 [Pending], 25-Hydroxy Vitamin D3 [Pending], Folate 19.0, Parathyroid Hormone (Intact) [Pending] Height (Feet): 5 Height (Inches): 5.00 Weight (Pounds): 237 Objective GENERAL: No acute distress, appears comfortable, alert, obese HEENT: NCAT, non-icteric eyes, pupils PERRLA Neck: No cervical lymphadenopathy, trachea midline CV: Regular rate and rhythm, no murmurs rubs or gallops RESP: Clear to auscultation bilaterally, no wheezes/rhonchi/crackles ABD: soft, non-distended, no TTP EXT: Normal muscle tone, +5/5 muscle strength NEURO: No obvious deficits, alert and oriented x3 Radha Turner DO May 09, 2020 12:09
--- NOTE | 2020-05-09 13:40 | Nephrology Progress Note ---
Assessment/Plan Plan #ABELINO- likely with CKD IV- renal US with medical renal disease- ABELINO component due to -pre-renal azotemia #Hyponatremia- hypovolumic in the setting fo lasix and aldactone ## Nausea/Vomitting / Diarrhea 2/2 Etoh intoxication vs gastroenteritis # Anemia # HTN - hold lasix and aldactone - hold further IVF - monitor PO intake - starte sodium bicarb 600 BID - check PTH/vitamin D - echo - iron panel - strict I&Os - daily weight I have spent 70 minutes on this case with >50% on care coordination and counseling Subjective ROS Limited/Unobtainable: No Constitutional: Denies: no symptoms, chills, diaphoresis, fever, malaise, weakness, other HEENT: Denies: no symptoms, eye pain, blurred vision, tearing, double vision, ear pain, ear discharge, nose pain, nose congestion, throat pain, throat swelling, mouth pain, mouth swelling, other Genitourinary: Denies: no symptoms, burning, discharge, frequency, flank pain, hematuria, incontinence, pain, urgency, other Neurologic/Psychiatric: Denies: no symptoms, anxiety, depressed, emotional problems, headache, numbness, paresthesia, pre-existing deficit, seizure, tingling, tremors, weakness, other Subjective Cr stable renal US with evidence of chronic medical kidney disease - sodium normalizing Objective Objective Last 24 Hour Vital Signs Date Time Temp Pulse Resp B/P (MAP) Pulse Ox O2 Delivery O2 Flow Rate FiO2 05/09/20 12:00 97.2 65 19 154/88 (110) 100 05/09/20 09:00 Room Air 05/09/20 08:00 97.6 75 18 140/75 (96) 98 05/09/20 04:00 97.3 72 18 147/79 (101) 98 05/08/20 21:32 Room Air 05/08/20 20:00 97.9 70 18 143/77 (99) 98 05/08/20 16:00 98.1 72 18 148/80 (102) 99 Intake and Output 05/08/20 05/09/20 19:00 07:00 Intake Total 1261 ml 150 ml Balance 1261 ml 150 ml Intake Oral 1080 ml 150 ml IV Total 181 ml # Voids 5 2 # Bowel Movements 1 Laboratory Tests 05/08/20 17:00: Sodium Level 138, Potassium Level 4.5, Chloride Level 108H, Carbon Dioxide Level 15L, Anion Gap 15, Blood Urea Nitrogen 67H, Creatinine 2.9H, Estimat Glomerular Filtration Rate 22.7, Glucose Level 115H, Osmolality 308, Calcium Level 7.9L 05/08/20 17:15: Urine Color Pale yellow, Urine Appearance Clear, Urine pH 6, Urine Specific [place] 1.010, Urine Protein 3+H, Urine Glucose (UA) Negative, Urine Ketones Negative, Urine Blood 2+H, Urine Nitrite Negative, Urine Bilirubin Negative, Urine Urobilinogen Normal, Urine Leukocyte Esterase Negative, Urine RBC 0-2H, Urine WBC 0, Urine Squamous Epithelial Cells Occasional, Urine Bacteria None, Urine Osmolality 350L, Urine Random Total Protein 101H, Urine Creatinine 33.0 05/09/20 05:10: Sodium Level 142, Potassium Level 4.2, Chloride Level 112H, Carbon Dioxide Level 17L, Anion Gap 13, Blood Urea Nitrogen 58H, Creatinine 3.0H, Estimat Glomerular Filtration Rate 21.8, Glucose Level 100, Calcium Level 7.9L, White Blood Count 3.5L, Red Blood Count 3.36L, Hemoglobin 10.6L, Hematocrit 32.4L, Mean Corpuscular Volume 97, Mean Corpuscular Hemoglobin 31.5H, Mean Corpuscular Hemoglobin Concent 32.6, Red Cell Distribution Width 12.6, Platelet Count 130L, Mean Platelet Volume 7.3, Neutrophils (%) (Auto) 68.8, Lymphocytes (%) (Auto) 16.1L, Monocytes (%) (Auto) 11.4H, Eosinophils (%) (Auto) 2.8, Basophils (%) ( Auto) 0.9, Calcium (Send out) [Pending], Phosphorus Level 4.6, Magnesium Level 2.5H, Iron Level 154, Total Iron Binding Capacity 337, Percent Iron Saturation 46, Unsaturated Iron Binding 183, Vitamin B12 Level 504, Vitamin D 25-Hydroxy [ Pending], 25-Hydroxy Vitamin D2 [Pending], 25-Hydroxy Vitamin D3 [Pending], Folate 19.0, Parathyroid Hormone (Intact) [Pending] Height (Feet): 5 Height (Inches): 5.00 Weight (Pounds): 237 Nelida Coronel M.D. May 09, 2020 13:40
--- NOTE | 2020-05-09 14:30 | NUR ---
CASE MANAGEMENT:REVIEW SI;AC RENAL FAILURE. TRANSAMINITIS. ETOH INTOXICATION. 97.6 75 19 154/88 98% ON RA BUN 58 CR 3.0 CA 7.9 IS;NaHCO3 PO HEPARIN SUBQ Q12 THIAMINE D5 IV ZOFRAN IV MED SURG STATUS DCP;PATIENT IS FROM HOME PLAN;HEMATOLOGY CONSULT ABDOMINAL US
--- NOTE | 2020-05-09 14:35 | NUR ---
SUPERINTENDENT CIRCUS NOTE SW met w/ pt and assessed pt and discussed substance abuse issue. Pt resides w/ roommates at [address] [place] [address]. Pt has no family member in [facility]. Per pt, his family is in [place]. Pt does not have emergency contact. PT is single, never and has no children. 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 Pt is ambulatory w/o DMEs and independent w/ ADLs. Pt's ETOH level was 321 prior to admission. RUDS all negative. PT admits ETOH abuse, 1-2x/week, 12 cans per day. Pt does not believe such ETOH abuse is an issue for him. He also informed such drinking habit did not impact his work. Pt declined counseling/tx intervention on substance abuse. SW encouraged pt to reconsider his drinking habit- cut his drinking amount for health. Pt verbalized understanding. No other concern/needs expressed by pt.
[2020-05-09 16:00] VITALS: BP 176/92
--- NOTE | 2020-05-09 16:30 | NUR ---
NURSE NOTES: Called office of Dr. Turner regarding BP. Message left. Awaiting response.
[2020-05-09] MEDS: Sodium Bicarbonate 650mg Tab ORAL SCH (17:04)
--- NOTE | 2020-05-09 19:11 | NUR ---
HAND-OFF: Report given to Ivana CONTI.
--- NOTE | 2020-05-09 19:16 | Diagnostic Imaging Report ---
EXAM: US Abdomen Complete CLINICAL HISTORY: Abdominal pain. TECHNIQUE: Real-time ultrasound of the abdomen with image documentation. COMPARISON: None. FINDINGS: Liver: The liver measures approximate 14.02 cm. No focal hepatic abnormality. No intrahepatic bile duct dilation. Gallbladder: The gallbladder is unremarkable. No gallstones. Common bile duct: Common bile duct measures 0.4 cm in caliber and is unremarkable. No stones. No dilation. Pancreas: Pancreas is unremarkable. Kidneys: The right kidney measures 10.7 x 6.1 x 5.9 cm without hydronephrosis. The left kidney measures 10 x 5.5 x 6.3 cm and contains a 1.2 cm complex cyst, possibly hemorrhagic cyst. No stones. Spleen: The spleen measures 14.7 cm and is enlarged. Aorta: The aortic bifurcation is obscured by bowel gas. Remaining segments of the abdominal aorta are unremarkable. Inferior vena cava: Unremarkable. IMPRESSION: 1. Complex left renal cyst, possibly hemorrhagic cyst. CT imaging of the abdomen is advised to follow-up for further characterization. At the very least, repeat ultrasound imaging of the kidneys in 4-6 months is advised to follow. 2. The gallbladder is unremarkable. 3. Common bile duct measures 0.4 cm and is normal in caliber. 4. No hydronephrosis. 5. No ascites. 6. Limited evaluation due to bowel gas.
--- NOTE | 2020-05-09 19:30 | NUR ---
NURSE NOTES: Received patient in no apparent distress. A&OX4. IV sites are patent and intact. Patient is receiving US abdomen. Bed in lowest position. Call light within reach. Will continue to monitor.
--- NOTE | 2020-05-09 19:47 | NUR ---
NURSE NOTES: Obtained regular diet from Dr. Sina hopper who cover Dr. Garzon. Addendum: 05/09/20 at 2215 by HALINA HOPPER RN RN Obtained regular diet from Dr. Dixon
[2020-05-09 20:00] VITALS: BP 157/93
[2020-05-10] VITALS: BP 129/98
[2020-05-10 04:00] VITALS: BP 129/75
--- NOTE | 2020-05-10 06:55 | Consultation ---
History of Present Illness General Chief Complaint: Abdominal Pain Reason for Consultation: ABELINO, hyponatremia Present Illness Allergies: Coded Allergies: No Known Allergies (Unverified , 05/07/20) Patient History Healthcare decision maker Resuscitation status Advanced Directive on File Physical Exam Last 24 Hour Vital Signs Date Time Temp Pulse Resp B/P (MAP) Pulse Ox O2 Delivery O2 Flow Rate FiO2 05/10/20 04:00 97.7 58 18 129/75 (93) 98 05/10/20 00:00 97.7 59 18 129/98 (108) 99 05/09/20 21:00 Room Air 05/09/20 20:00 97.9 59 18 157/93 (114) 98 05/09/20 17:04 52 176/92 05/09/20 16:00 97.9 52 18 176/92 (120) 99 05/09/20 12:00 97.2 65 19 154/88 (110) 100 05/09/20 09:00 Room Air 05/09/20 08:00 97.6 75 18 140/75 (96) 98 Intake and Output 05/09/20 05/10/20 19:00 07:00 Intake Total 1925 ml 240 ml Balance 1925 ml 240 ml Intake Oral 800 ml 240 ml IV Total 1125 ml # Voids 2 2 # Bowel Movements 1 Laboratory Tests Test 05/10/20 06:00 Sodium Level Pending Potassium Level Pending Chloride Level Pending Carbon Dioxide Level Pending Blood Urea Nitrogen Pending Creatinine Pending Estimat Glomerular Filtration Rate Pending Glucose Level Pending Calcium Level Pending Height (Feet): 5 Height (Inches): 5.00 Weight (Pounds): 237 Medications Current Medications Medications (Trade) Dose Ordered Sig/Neelam Route PRN Reason Start Time Stop Time Status Last Admin Dose Admin Acetaminophen/ Hydrocodone Bitart ([place] 10/325) 1 tab Q4H PRN ORAL For Severe Pain 05/07/20 22:45 05/14/20 22:44 Acetaminophen/ Hydrocodone Bitart ([place] 5/325) 1 tab Q4H PRN ORAL Moderate Pain (Pain Scale 4-6) 05/07/20 22:45 05/14/20 22:44 Amlodipine Besylate (Norvasc) 10 mg DAILY ORAL 05/10/20 09:00 06/09/20 08:59 Folic Acid 1 mg/ Magnesium Sulfate 2000 mg/ Multivitamins 10 ml/Sodium Chloride 1,014.2 ml @ 125 mls/ hr Q24H IV 05/08/20 08:00 06/07/20 07:59 05/09/20 08:12 Heparin Sodium (Porcine) (Heparin 5000 units/ml) 5,000 units EVERY 12 HOURS SUBQ 05/08/20 21:00 06/22/20 08:59 05/09/20 21:14 Lorazepam (Ativan 2mg/ml 1ml) 1 mg Q3H PRN IVP For agitation 05/07/20 22:45 05/14/20 22:44 Ondansetron HCl (Zofran) 4 mg Q4HR PRN IVP Nausea & Vomiting 05/07/20 22:45 06/06/20 22:44 05/08/20 10:20 Sodium Bicarbonate (NaHCO3) 650 mg BID ORAL 05/09/20 18:00 06/08/20 17:59 05/09/20 17:04 Thiamine HCl 100 mg/Dextrose 56 ml @ 112 mls/hr Q24H IVPB 05/08/20 08:00 06/07/20 07:59 05/09/20 08:13 Assessment/Plan Assessment/Plan: Hematology Consultation Reason for Hospitalization: Abdominal Pain RFC Pancytopenia evkenneth Garzon and Radha Turner HPI 55-year-old male with no known past medical history brought in by paramedics due to alcohol abuse. Patient reports that he has been drinking a lot and has been experiencing epigastric abdominal pain with acid reflux as well as nausea, vomiting and diarrhea. Denies any bloody emesis or bloody diarrhea. Patient sitting comfortably with stable vital signs. Denies any drug use. Denies any cardiac history, diabetes, no other past medical history. Denies tobacco smoke. Appears to be afebrile. Above history confirmed with patient at bedside. Patient denies sob, cp, rivers, dizziness. No seizures overnight Patient states he sees a PCP and was taking bp medication as well as spironolactone and lasix. Wbc, plt, and hgb are all low thus heme was consulted for eval and rn Allergies: No Known Allergies (Unverified , 05/07/20) COVID-19 Screening Contact w/high risk pt: No Recent Travel to affected area: No Experienced COVID-19 symptoms?: No Patient History History Provided By: Patient - spoke to patient in [place] Healthcare decision maker Social History: Alcohol intoxication Review of Systems neg besides as in hpi Physical Exam General Appearance: no apparent distress, obese Lines, tubes and drains: peripheral HEENT: normocephalic, atraumatic Neck: normal alignment Respiratory/Chest: lungs clear, normal breath sounds Cardiovascular/Chest: normal peripheral pulses, normal rate, regular rhythm Abdomen: non tender, soft, no organomegaly Extremities: non-tender, normal inspection, no calf tenderness Musculoskeletal: normal muscle bulk Labs: noted Imaging reviewed Assessment and Recs # Pancytopenia is likely related to etoh use ad intoxication, although he denies it --> imaging of abd is noted, no demi cirrhosis --> peripheral smear is reviewed as well --> refrain from etoh use --> labs should improve once off etoh in next week --> wbc 3.5 --> hgb 10 --> plt 146-->130 # Hyponatremia 2/2 medication induced and N/V resolved --> per renal, hold home spironolactone and lasix --> ivfs prn # ABELINO; this appears to be more likely chronic kidney disease --> as per renal recs # Nausea/Vomitting / Diarrhea 2/2 Etoh intoxication vs gastroenteritis --> symptomatic control per gi # HTN --> as per cards # Dvt ppx heparin sq Appreciate consultation and dw RN Amilcar Asif MD May 10, 2020 06:55
[2020-05-10 06:59] LABS: ANION GAP 14 mmol/L (5-15); BLOOD UREA NITROGEN 49 mg/dL (7-18); CALCIUM 8.3 MG/DL (8.5-10.1); CARBON DIOXIDE 16 MMOL/L (21-32); CHLORIDE 110 MMOL/L (98-107); CREATININE 2.7 MG/DL (0.55-1.30); POTASSIUM 4.4 MMOL/L (3.5-5.1); SODIUM 140 MMOL/L (136-145)
--- NOTE | 2020-05-10 07:20 | NUR ---
NURSE NOTES: Received patient in bed. Awake, A/O x4. On room air. Denies pain at this time. IV in the Left hand, site intact. Bed low and locked.
--- NOTE | 2020-05-10 07:30 | NUR ---
HAND-OFF: Report given to Colby CONTI. VS stable. Call light within reach. Will continue to monitor.
[2020-05-10 08:00] VITALS: BP 156/80
[2020-05-10] MEDS: Folic Acid 1 MG, Magnesium Sulfate 2,000 MG, Multivitamin - 12 Injection 10 ML in Sodiu... IV SCH (08:38)
[2020-05-10] MEDS: Thiamine 100mg in D5W 55ml IVPB SCH (08:39)
[2020-05-10] MEDS: Sodium Bicarbonate 650mg Tab ORAL SCH ×2 (08:39→17:22)
[2020-05-10] MEDS: Heparin 5000 units/ml inj SUBQ SCH ×2 (08:49→20:08)
--- NOTE | 2020-05-10 09:38 | Nephrology Progress Note ---
Assessment/Plan Plan #ABELINO- likely with CKD IV- renal US with medical renal disease- ABELINO component due to -pre-renal azotemia #Hyponatremia- hypovolumic in the setting fo lasix and aldactone ## Nausea/Vomitting / Diarrhea 2/2 Etoh intoxication vs gastroenteritis # Anemia # HTN - hold lasix and aldactone - hold further IVF - monitor PO intake - started sodium bicarb 600 BID - amlodipine 10mg daily - check PTH/vitamin D - echo - iron panel - strict I&Os - daily weight I have spent 70 minutes on this case with >50% on care coordination and counseling Subjective ROS Limited/Unobtainable: No Constitutional: Denies: no symptoms, chills, diaphoresis, fever, malaise, weakness, other HEENT: Denies: no symptoms, eye pain, blurred vision, tearing, double vision, ear pain, ear discharge, nose pain, nose congestion, throat pain, throat swelling, mouth pain, mouth swelling, other Genitourinary: Denies: no symptoms, burning, discharge, frequency, flank pain, hematuria, incontinence, pain, urgency, other Neurologic/Psychiatric: Denies: no symptoms, anxiety, depressed, emotional problems, headache, numbness, paresthesia, pre-existing deficit, seizure, tingling, tremors, weakness, other Subjective Cr stable renal US with evidence of chronic medical kidney disease - sodium normalizing BP uptrending started on amlodipine 10 Objective Objective Last 24 Hour Vital Signs Date Time Temp Pulse Resp B/P (MAP) Pulse Ox O2 Delivery O2 Flow Rate FiO2 05/10/20 08:39 60 156/80 05/10/20 08:00 97.7 60 18 156/80 (105) 99 05/10/20 04:00 97.7 58 18 129/75 (93) 98 05/10/20 00:00 97.7 59 18 129/98 (108) 99 05/09/20 21:00 Room Air 05/09/20 20:00 97.9 59 18 157/93 (114) 98 05/09/20 17:04 52 176/92 05/09/20 16:00 97.9 52 18 176/92 (120) 99 05/09/20 12:00 97.2 65 19 154/88 (110) 100 Intake and Output 05/09/20 05/10/20 19:00 07:00 Intake Total 1925 ml 240 ml Balance 1925 ml 240 ml Intake Oral 800 ml 240 ml IV Total 1125 ml # Voids 2 2 # Bowel Movements 1 Laboratory Tests 05/10/20 06:00: Sodium Level 140, Potassium Level 4.4, Chloride Level 110H, Carbon Dioxide Level 16L, Anion Gap 14, Blood Urea Nitrogen 49H, Creatinine 2.7H, Estimat Glomerular Filtration Rate 24.7, Glucose Level 109H, Calcium Level 8.3L, Ferritin 91, Hepatitis A IgM Antibody [Pending], Hepatitis B Surface Antigen [ Pending], Hepatitis B Core IgM Antibody [Pending], Hepatitis C Antibody [Pending ], HIV (1&2) Antibody Rapid Negative Height (Feet): 5 Height (Inches): 5.00 Weight (Pounds): 237 General Appearance: no apparent distress, alert EENT: PERRL/EOMI, normal ENT inspection Neck: non-tender, normal alignment Cardiovascular: normal peripheral pulses, normal rate, regular rhythm Respiratory/Chest: chest wall non-tender, lungs clear Abdomen: normal bowel sounds Extremities: normal range of motion, non-tender Neurologic: alert, oriented x 3 Nelida Coronel M.D. May 10, 2020 09:38
[2020-05-10 12:00] VITALS: BP 150/88
[2020-05-10 13:33] LABS: BASOPHILS % (AUTO) 0.8 % (0.0-2.0); EOSINOPHILS % (AUTO) 2.9 % (0.0-3.0); HEMATOCRIT 34.4 % (42.0-52.0); HEMOGLOBIN 11.1 G/DL (14.2-18.0); LYMPHOCYTES % (AUTO) 19.8 % (20.0-45.0); MEAN CORPUSCULAR VOLUME 97 FL (80-99); NEUTROPHILS % (AUTO) 67.6 % (45.0-75.0); PLATELET COUNT 119 K/UL (150-450); RED BLOOD COUNT 3.54 M/UL (4.70-6.10); RED CELL DISTRIBUTION WIDTH 12.3 % (11.6-14.8); WHITE BLOOD COUNT 3.9 K/UL (4.8-10.8)
--- NOTE | 2020-05-10 15:28 | NUR ---
CASE MANAGEMENT:REVIEW SI;AC RENAL FAILURE. TRANSAMINITIS. ETOH INTOXICATION. 97.7 53 18 156/80 98% ON RA BUN 49 CR 2.7 IS;FOLIC ACID/MAG SULFATE/MULTI VIT/NS IV NaHCO3 PO BID THIAMINE IN ZOFRAN IV HEPARIN SUBQ MED SURG STATUS DCP;PATIENT IS FROM HOME
[2020-05-10 16:00] VITALS: BP_SYST 153; BP_SYST 186; BP_DIAS 98; BP_DIAS 99
--- NOTE | 2020-05-10 17:02 | General Progress Note ---
Assessment/Plan Problem List: (1) Acute renal failure ICD Codes: N17.9 - Acute kidney failure, unspecified SNOMED: 42479421 (2) Transaminitis ICD Codes: R74.0 - Nonspecific elevation of levels of transaminase and lactic acid dehydrogenase [LDH] SNOMED: 768074450, 403085120 (3) ABELINO (acute kidney injury) ICD Codes: N17.9 - Acute kidney failure, unspecified SNOMED: 13573340, 5544438 (4) Alcohol intoxication ICD Codes: F10.929 - Alcohol use, unspecified with intoxication, unspecified SNOMED: 80233677 (5) Hyponatremia ICD Codes: E87.1 - Hypo-osmolality and hyponatremia SNOMED: 81227897 Status: doing well Assessment/Plan: 55-year-old male with no known past medical history brought in by paramedics due to alcohol abuse. Patient reports that he has been drinking a lot and has been experiencing epigastric abdominal pain with acid reflux as well as nausea, vomiting and diarrhea. Denies any bloody emesis or bloody diarrhea. Patient sitting comfortably with stable vital signs. Denies any drug use. Denies any cardiac history, diabetes, no other past medical history. Denies tobacco smoke. Appears to be afebrile. Above history confirmed with patient at bedside. Patient denies sob, cp, rivers, dizziness. No seizures overnight Patient states he sees a PCP and was taking bp medication as well as spironolactone and lasix. # Hyponatremia 2/2 medication induced and N/V resolved -Monitor BMP - hold home spironolactone and lasix - lytes and osmols - TSH wnl # ABELINO; this appears to be more likely chronic kidney disease - f/u renal us, chronic kidney disease with cystoscopy noted, no hydro - dw Nephro - lytes and osmols - I/O's - UA: neg -Mention of possible hemorrhagic cyst noted on imaging, will consider CT however given how this patient cannot have contrast CT may not be helpful. Patient continues to remain asymptomatic hemoglobin stable has no pain kidney function stable # Nausea/Vomitting / Diarrhea 2/2 Etoh intoxication vs gastroenteritis - symptoms resolved - f/u abd us: No cirrhosis - ctm cmp # Anemia #Pancytopenia most likely secondary to EtOH abuse -Hematology consult, appreciate recs - f/u iron panel, b12, folate # HTN - unsure why patient is on lasix and spironolactone - f/u TTE: EF normal - f/u CXR: Normal - hold meds I have spent 38 minutes on this case with >50% on care coordination and counseling Time of note may not reflect time of encounter Subjective Date patient seen: May 10, 2020 Time patient seen: 15:00 Allergies: Coded Allergies: No Known Allergies (Unverified , 05/07/20) Subjective Patient denies nausea, vomiting, abdominal pain, diarrhea, dizziness, shortness of breath, chest pain. States he is urinating well Discussed with patient his kidney function, he states he has never been diagnosed with kidney disease, patient denies any pain Objective Last 24 Hour Vital Signs Date Time Temp Pulse Resp B/P (MAP) Pulse Ox O2 Delivery O2 Flow Rate FiO2 05/10/20 12:00 97.3 53 18 150/88 (108) 99 05/10/20 09:00 Room Air 05/10/20 08:39 60 156/80 05/10/20 08:00 97.7 60 18 156/80 (105) 99 05/10/20 04:00 97.7 58 18 129/75 (93) 98 05/10/20 00:00 97.7 59 18 129/98 (108) 99 05/09/20 21:00 Room Air 05/09/20 20:00 97.9 59 18 157/93 (114) 98 05/09/20 17:04 52 176/92 Intake and Output 05/09/20 05/10/20 19:00 07:00 Intake Total 1925 ml 240 ml Balance 1925 ml 240 ml Intake Oral 800 ml 240 ml IV Total 1125 ml # Voids 2 2 # Bowel Movements 1 Laboratory Tests 05/10/20 06:00: White Blood Count 3.9L, Red Blood Count 3.54L, Hemoglobin 11.1L, Hematocrit 34.4L, Mean Corpuscular Volume 97, Mean Corpuscular Hemoglobin 31.5H, Mean Corpuscular Hemoglobin Concent 32.3, Red Cell Distribution Width 12.3, Platelet Count 119L, Mean Platelet Volume 7.4, Neutrophils (%) (Auto) 67.6, Lymphocytes ( %) (Auto) 19.8L, Monocytes (%) (Auto) 9.0, Eosinophils (%) (Auto) 2.9, Basophils (%) (Auto) 0.8, Sodium Level 140, Potassium Level 4.4, Chloride Level 110H, Carbon Dioxide Level 16L, Anion Gap 14, Blood Urea Nitrogen 49H, Creatinine 2.7H, Estimat Glomerular Filtration Rate 24.7, Glucose Level 109H, Calcium Level 8.3L, Ferritin 91, Hepatitis A IgM Antibody [Pending], Hepatitis B Surface Antigen [Pending], Hepatitis B Core IgM Antibody [Pending], Hepatitis C Antibody [Pending], HIV (1&2) Antibody Rapid Negative Height (Feet): 5 Height (Inches): 5.00 Weight (Pounds): 237 Objective GENERAL: No acute distress, appears comfortable, alert, obese HEENT: NCAT, non-icteric eyes, pupils PERRLA Neck: No cervical lymphadenopathy, trachea midline CV: Regular rate and rhythm, no murmurs rubs or gallops RESP: Clear to auscultation bilaterally, no wheezes/rhonchi/crackles ABD: soft, non-distended, no TTP EXT: Normal muscle tone, +5/5 muscle strength NEURO: No obvious deficits, alert and oriented x3 Radha Turner DO May 10, 2020 17:02
--- NOTE | 2020-05-10 19:01 | NUR ---
HAND-OFF: Report given to Ivana CONTI.
--- NOTE | 2020-05-10 19:33 | NUR ---
NURSE NOTES: Received patient in no apparent distress. A&OX4. IV sites are patent and intact. Bed in lowest position. Call light within reach. Will continue to monitor.
[2020-05-10 20:00] VITALS: BP 156/90
[2020-05-11] VITALS: BP 144/79
[2020-05-11 04:00] VITALS: BP 156/95
[2020-05-11 05:51] LABS: BASOPHILS % (AUTO) 0.6 % (0.0-2.0); EOSINOPHILS % (AUTO) 3.7 % (0.0-3.0); HEMATOCRIT 33.3 % (42.0-52.0); HEMOGLOBIN 10.7 G/DL (14.2-18.0); LYMPHOCYTES % (AUTO) 19.7 % (20.0-45.0); MEAN CORPUSCULAR VOLUME 96 FL (80-99); MONOCYTES % (AUTO) 10.2 % (1.0-10.0); NEUTROPHILS % (AUTO) 65.7 % (45.0-75.0); PLATELET COUNT 122 K/UL (150-450); RED BLOOD COUNT 3.47 M/UL (4.70-6.10); RED CELL DISTRIBUTION WIDTH 12.2 % (11.6-14.8); WHITE BLOOD COUNT 3.8 K/UL (4.8-10.8)
[2020-05-11 06:48] LABS: ANION GAP 13 mmol/L (5-15); BLOOD UREA NITROGEN 44 mg/dL (7-18); CALCIUM 8.1 MG/DL (8.5-10.1); CARBON DIOXIDE 18 MMOL/L (21-32); CHLORIDE 108 MMOL/L (98-107); CREATININE 2.8 MG/DL (0.55-1.30); POTASSIUM 4.2 MMOL/L (3.5-5.1); SODIUM 139 MMOL/L (136-145)
[2020-05-11 07:08] LABS: ALANINE AMINOTRANSFERASE 57 U/L (12-78); ALBUMIN 3.3 G/DL (3.4-5.0); ALKALINE PHOSPHATASE 107 U/L (46-116); ASPARTATE AMINO TRANSFERASE 41 U/L (15-37); BILIRUBIN,DIRECT 0.1 MG/DL (0.0-0.3); BILIRUBIN,TOTAL 0.3 MG/DL (0.2-1.0)
--- NOTE | 2020-05-11 07:10 | NUR ---
HAND-OFF: Report given to Colby CONTI. VS stable. Call light colby jo. Will continue to monitor.
--- NOTE | 2020-05-11 07:30 | NUR ---
NURSE NOTES: Received patient in bed. Awake, A/O x4. On room air. Patient denies pain at this time. IV in the Right AC, site intact. Bed low and locked.
[2020-05-11 08:00] VITALS: BP 163/102
[2020-05-11] MEDS: Thiamine 100mg in D5W 55ml IVPB SCH (08:24)
[2020-05-11] MEDS: Folic Acid 1 MG, Magnesium Sulfate 2,000 MG, Multivitamin - 12 Injection 10 ML in Sodiu... IV SCH (08:24)
[2020-05-11] MEDS: Sodium Bicarbonate 650mg Tab ORAL SCH (08:25)
[2020-05-11] MEDS: Heparin 5000 units/ml inj SUBQ SCH (08:37)
[2020-05-11] MEDS ORDERED: HYDRALAZINE HCL10 MG ORAL (09:26)
[2020-05-11] MEDS ORDERED: NORVASC10 MG ORAL (09:26)
--- NOTE | 2020-05-11 09:27 | Discharge Instructions ---
Discharge Instructions Discharge Instructions Follow up with: primary care doctor within 1-2 weeks Diet: 2 GM sodium (low sodium) For Congestive Heart Failure Reminder Report to your physician any weight gain of 5 pounds or more in one week. Radha Turner DO May 11, 2020 09:27
[2020-05-11 09:42] VITALS: BP 163/102
--- NOTE | 2020-05-11 09:46 | Nephrology Progress Note ---
Assessment/Plan Plan #AEBLINO- likely with CKD IV- renal US with medical renal disease- ABELINO component due to -pre-renal azotemia #Hyponatremia- hypovolumic in the setting fo lasix and aldactone ## Nausea/Vomitting / Diarrhea 2/2 Etoh intoxication vs gastroenteritis # Anemia # HTN - hold lasix and aldactone - hold further IVF - monitor PO intake - started sodium bicarb 600 BID - amlodipine 10mg daily - check PTH/vitamin D - echo - iron panel - strict I&Os - daily weight I have spent 70 minutes on this case with >50% on care coordination and counseling Subjective ROS Limited/Unobtainable: No Constitutional: Denies: no symptoms, chills, diaphoresis, fever, malaise, weakness, other HEENT: Denies: no symptoms, eye pain, blurred vision, tearing, double vision, ear pain, ear discharge, nose pain, nose congestion, throat pain, throat swelling, mouth pain, mouth swelling, other Genitourinary: Denies: no symptoms, burning, discharge, frequency, flank pain, hematuria, incontinence, pain, urgency, other Neurologic/Psychiatric: Denies: no symptoms, anxiety, depressed, emotional problems, headache, numbness, paresthesia, pre-existing deficit, seizure, tingling, tremors, weakness, other Subjective Cr stable renal US with evidence of chronic medical kidney disease - sodium normalizing BP uptrending started on amlodipine 10 Objective Objective Last 24 Hour Vital Signs Date Time Temp Pulse Resp B/P (MAP) Pulse Ox O2 Delivery O2 Flow Rate FiO2 05/11/20 09:42 163/102 05/11/20 09:00 Room Air 05/11/20 08:25 58 163/102 05/11/20 08:00 98.1 58 18 163/102 (122) 99 05/11/20 04:00 97.3 58 16 156/95 (115) 97 05/11/20 00:00 99.1 55 16 144/79 (100) 100 05/10/20 20:43 Room Air 05/10/20 20:00 97.9 56 18 156/90 (112) 99 05/10/20 16:00 96.8 65 18 153/99 (117) 98 05/10/20 12:00 97.3 53 18 150/88 (108) 99 Intake and Output 05/10/20 05/11/20 19:00 07:00 Intake Total 1896 ml 360 ml Balance 1896 ml 360 ml Intake Oral 840 ml IV Total 1056 ml Other 360 ml # Voids 3 2 Laboratory Tests 05/11/20 05:25: White Blood Count 3.8L, Red Blood Count 3.47L, Hemoglobin 10.7L, Hematocrit 33.3L, Mean Corpuscular Volume 96, Mean Corpuscular Hemoglobin 30.9, Mean Corpuscular Hemoglobin Concent 32.3, Red Cell Distribution Width 12.2, Platelet Count 122L, Mean Platelet Volume 8.0, Neutrophils (%) (Auto) 65.7, Lymphocytes ( %) (Auto) 19.7L, Monocytes (%) (Auto) 10.2H, Eosinophils (%) (Auto) 3.7H, Basophils (%) (Auto) 0.6, Sodium Level 139, Potassium Level 4.2, Chloride Level 108H, Carbon Dioxide Level 18L, Anion Gap 13, Blood Urea Nitrogen 44H, Creatinine 2.8H, Estimat Glomerular Filtration Rate 23.6, Glucose Level 102, Calcium Level 8.1L, Total Bilirubin 0.3, Direct Bilirubin 0.1, Aspartate Amino Transf (AST/SGOT) 41H, Alanine Aminotransferase (ALT/SGPT) 57, Alkaline Phosphatase 107, Total Protein 6.4, Albumin 3.3L Height (Feet): 5 Height (Inches): 5.00 Weight (Pounds): 237 Nelida Coornel M.D. May 11, 2020 09:46
--- NOTE | 2020-05-11 09:56 | NUR ---
NURSE NOTES: Patient states he wants to walk home and use public transit. Patient states he lives nearby. A/O x4. Patient is ambulatory without assist. Patient has his shoes. Taxi offered and refused.
[2020-05-11] MEDS ORDERED: HydrALAZINE 10mg Tab ORAL SCH (10:00)
--- NOTE | 2020-05-11 10:59 | NUR ---
NURSE NOTES: Patient d/c. Patient belongings list verified, ID band removed, IV site removed. VSS. D/c walking, ambulatory without assist.
--- NOTE | 2020-05-11 11:12 | Discharge Summary ---
Discharge Summary Hospital Course Date of Admission May 07, 2020 at 20:55 Date of Discharge May 11, 2020 at 11:04 Admitting Diagnosis HYPONATREMIA Reason for Hospitalization: Hyponatremia, alcohol intoxication, ABELINO HPI Kian May is a 55 year old male who was admitted on May 07, 2020 at 20:55 for Hyponatremia, Acute Kidney Injury Consultations Hematology, nephrology Hospital Course 55-year-old male with no known past medical history brought in by paramedics due to alcohol abuse. Patient reports that he has been drinking a lot and has been experiencing epigastric abdominal pain with acid reflux as well as nausea, vomiting and diarrhea. Denies any bloody emesis or bloody diarrhea. Patient sitting comfortably with stable vital signs. Denies any drug use. Denies any cardiac history, diabetes, no other past medical history. Denies tobacco smoke. Appears to be afebrile on admission. Patient was admitted with IV fluids, for hyponatremia and ABELINO. After admission patient reported that he had been taking spironolactone prescribed to him by his primary doctor. He denied any prior history of medical renal disease. Continue to have good urine output , with renal ultrasound consistent with medical renal disease. Creatinine remained stabilized, and is suspected to be chronic kidney disease. Blood pressure management done during hospitalization. Hyponatremia normalized. Abnormal LFTs with follow-up abdominal ultrasound showed a renal cyst noted as possibly hemorrhagic. However, renal ultrasound did not mention any signs of hemorrhage, patient denied pain throughout hospital course, hemoglobin remained stable. Patient was educated on having repeat ultrasound done in 6-week with his primary care physician. Patient was also instructed not to take spironolactone, and to continue medications prescribed to him. Medications to be filled at [facility] pharmacy and given to patient on discharge. # Hyponatremia 2/2 medication induced and N/V resolved -Monitor BMP - hold home spironolactone and lasix - lytes and osmols - TSH wnl # ABELINO; this appears to be more likely chronic kidney disease - f/u renal us, chronic kidney disease with cystoscopy noted, no hydro - dw Nephro - lytes and osmols - I/O's - UA: neg -Mention of possible hemorrhagic cyst noted on imaging, will consider CT however given how this patient cannot have contrast CT may not be helpful. Patient continues to remain asymptomatic hemoglobin stable has no pain kidney function stable # Nausea/Vomitting / Diarrhea 2/2 Etoh intoxication vs gastroenteritis - symptoms resolved - f/u abd us: No cirrhosis - ctm cmp # Anemia #Pancytopenia most likely secondary to EtOH abuse -Hematology consult, appreciate recs - f/u iron panel, b12, folate # HTN - unsure why patient is on lasix and spironolactone - f/u TTE: EF normal - f/u CXR: Normal - hold meds I have spent 38 minutes on this case with >50% on care coordination and counseling Time of note may not reflect time of encounter Discharge Medications New Medications: Hydralazine Hcl* (Hydralazine Hcl*) 10 Mg Tablet 10 MG ORAL EVERY 8 HOURS, #90 TAB 0 Refills Amlodipine Besylate (Norvasc) 10 Mg Tablet 10 MG ORAL DAILY, #30 TAB 0 Refills Discharge Condition Upon Discharge: stable Discharge Vital Signs Last Vital Signs Date Time Temp Pulse Resp B/P (MAP) Pulse Ox O2 Delivery O2 Flow Rate FiO2 05/11/20 09:42 163/102 05/11/20 09:00 Room Air 05/11/20 08:25 58 05/11/20 08:00 98.1 18 99 Discharge Disposition Patient was discharged to Home Discharge Diagnoses: (1) ABELINO (acute kidney injury) (2) CKD (chronic kidney disease) (3) Hypertension, uncontrolled (4) Anemia of chronic disease (5) Transaminitis Discharge Instructions Discharge Instructions Follow up with: primary care doctor within 1-2 weeks Radha Turner DO May 11, 2020 11:12
--- NOTE | 2020-05-11 11:12 | Hematology/Onc Progress Note ---
Assessment/Plan Assessment/Plan Assessment and Recs # Pancytopenia is likely related to etoh use ad intoxication, although he denies it --> imaging of abd is noted, no demi cirrhosis --> peripheral smear is reviewed as well --> refrain from etoh use --> labs should improve once off etoh in next week --> wbc 3.5-->3.8 --> hgb 10-->10.7 --> plt 146-->130-->122 # Hyponatremia 2/2 medication induced and N/V resolved --> per renal, hold home spironolactone and lasix --> ivfs prn # ABELINO; this appears to be more likely chronic kidney disease --> as per renal recs # Nausea/Vomitting / Diarrhea 2/2 Etoh intoxication vs gastroenteritis --> symptomatic control per gi # HTN --> as per cards # Dvt ppx heparin sq Appreciate consultation and amrit RN Subjective HEENT: Denies: no symptoms, eye pain, blurred vision, tearing, double vision, ear pain, ear discharge, nose pain, nose congestion, throat pain, throat swelling, mouth pain, mouth swelling, other Cardiovascular: Denies: no symptoms, chest pain, edema, irregular heart rate, lightheadedness, palpitations, syncope, other Respiratory: Denies: no symptoms, cough, shortness of breath, SOB with excertion, SOB at rest, sputum, wheezing, other Gastrointestinal/Abdominal: Denies: no symptoms, abdomen distended, abdominal pain, black stools, tarry stools, blood in stool, constipated, diarrhea, difficulty swallowing, nausea, poor appetite, poor fluid intake, rectal bleeding , vomiting, other Genitourinary: Denies: no symptoms, burning, discharge, frequency, flank pain, hematuria, incontinence, pain, urgency, other Neurologic/Psychiatric: Denies: no symptoms, anxiety, depressed, emotional problems, headache, numbness, paresthesia, pre-existing deficit, seizure, tingling, tremors, weakness, other Endocrine: Denies: no symptoms, excessive sweating, flushing, intolerance to cold, intolerance to heat, increased hunger, increased thirst, increased urine, unexplained weight gain, unexplained weight loss, other Allergies: Coded Allergies: No Known Allergies (Unverified , 05/07/20) Subjective 05/11 for dc today, stable, labs noted, no bleeding Objective Objective Last 24 Hour Vital Signs Date Time Temp Pulse Resp B/P (MAP) Pulse Ox O2 Delivery O2 Flow Rate FiO2 05/11/20 09:42 163/102 05/11/20 09:00 Room Air 05/11/20 08:25 58 163/102 05/11/20 08:00 98.1 58 18 163/102 (122) 99 05/11/20 04:00 97.3 58 16 156/95 (115) 97 05/11/20 00:00 99.1 55 16 144/79 (100) 100 05/10/20 20:43 Room Air 05/10/20 20:00 97.9 56 18 156/90 (112) 99 05/10/20 16:00 96.8 65 18 153/99 (117) 98 05/10/20 12:00 97.3 53 18 150/88 (108) 99 05/10/20 09:00 Room Air 05/10/20 08:39 60 156/80 05/10/20 08:00 97.7 60 18 156/80 (105) 99 05/10/20 04:00 97.7 58 18 129/75 (93) 98 05/10/20 00:00 97.7 59 18 129/98 (108) 99 05/09/20 21:00 Room Air 05/09/20 20:00 97.9 59 18 157/93 (114) 98 05/09/20 17:04 52 176/92 05/09/20 16:00 97.9 52 18 176/92 (120) 99 05/09/20 12:00 97.2 65 19 154/88 (110) 100 Intake and Output 05/10/20 05/11/20 19:00 07:00 Intake Total 1896 ml 360 ml Balance 1896 ml 360 ml Intake Oral 840 ml IV Total 1056 ml Other 360 ml # Voids 3 2 Labs Test 05/08/20 17:00 05/08/20 17:15 05/09/20 05:10 05/10/20 06:00 Sodium Level 138 MMOL/L (136-145) 142 MMOL/L (136-145) 140 MMOL/L (136-145) Potassium Level 4.5 MMOL/L (3.5-5.1) 4.2 MMOL/L (3.5-5.1) 4.4 MMOL/L (3.5-5.1) Chloride Level 108 MMOL/L (98-107) 112 MMOL/L (98-107) 110 MMOL/L (98-107) Carbon Dioxide Level 15 MMOL/L (21-32) 17 MMOL/L (21-32) 16 MMOL/L (21-32) Anion Gap 15 mmol/L (5-15) 13 mmol/L (5-15) 14 mmol/L (5-15) Blood Urea Nitrogen 67 mg/dL (7-18) 58 mg/dL (7-18) 49 mg/dL (7-18) Creatinine 2.9 MG/DL (0.55-1.30) 3.0 MG/DL (0.55-1.30) 2.7 MG/DL (0.55-1.30) Estimat Glomerular Filtration Rate 22.7 mL/min (>60) 21.8 mL/min (>60) 24.7 mL/min (>60) Glucose Level 115 MG/DL (74-106) 100 MG/DL (74-106) 109 MG/DL (74-106) Osmolality 308 mOsm/kg (297-317) Calcium Level 7.9 MG/DL (8.5-10.1) 7.9 MG/DL (8.5-10.1) 8.3 MG/DL (8.5-10.1) Urine Color Pale yellow Urine Appearance Clear Urine pH 6 (4.5-8.0) Urine Specific [place]born 1.010 (1.005-1.035) Urine Protein 3+ (NEGATIVE) Urine Glucose (UA) Negative (NEGATIVE) Urine Ketones Negative (NEGATIVE) Urine Blood 2+ (NEGATIVE) Urine Nitrite Negative (NEGATIVE) Urine Bilirubin Negative (NEGATIVE) Urine Urobilinogen Normal MG/DL (0.0-1.0) Urine Leukocyte Esterase Negative (NEGATIVE) Urine RBC 0-2 /HPF (0 - 0) Urine WBC 0 /HPF (0 - 0) Urine Squamous Epithelial Cells Occasional /LPF Urine Bacteria None /HPF (NONE) Urine Osmolality 350 mOsm/kg (429-449) Urine Random Total Protein 101 MG/DL (< 11.9) Urine Creatinine 33.0 MG/DL (30.0-125.0) White Blood Count 3.5 K/UL (4.8-10.8) 3.9 K/UL (4.8-10.8) Red Blood Count 3.36 M/UL (4.70-6.10) 3.54 M/UL (4.70-6.10) Hemoglobin 10.6 G/DL (14.2-18.0) 11.1 G/DL (14.2-18.0) Hematocrit 32.4 % (42.0-52.0) 34.4 % (42.0-52.0) Mean Corpuscular Volume 97 FL (80-99) 97 FL (80-99) Mean Corpuscular Hemoglobin 31.5 PG (27.0-31.0) 31.5 PG (27.0-31.0) Mean Corpuscular Hemoglobin Concent 32.6 G/DL (32.0-36.0) 32.3 G/DL (32.0-36.0) Red Cell Distribution Width 12.6 % (11.6-14.8) 12.3 % (11.6-14.8) Platelet Count 130 K/UL (150-450) 119 K/UL (150-450) Mean Platelet Volume 7.3 FL (6.5-10.1) 7.4 FL (6.5-10.1) Neutrophils (%) (Auto) 68.8 % (45.0-75.0) 67.6 % (45.0-75.0) Lymphocytes (%) (Auto) 16.1 % (20.0-45.0) 19.8 % (20.0-45.0) Monocytes (%) (Auto) 11.4 % (1.0-10.0) 9.0 % (1.0-10.0) Eosinophils (%) (Auto) 2.8 % (0.0-3.0) 2.9 % (0.0-3.0) Basophils (%) (Auto) 0.9 % (0.0-2.0) 0.8 % (0.0-2.0) Calcium (Send out) 8.1 mg/dL (8.7-10.2) Phosphorus Level 4.6 MG/DL (2.5-4.9) Magnesium Level 2.5 MG/DL (1.8-2.4) Iron Level 154 ug/dL (50-175) Total Iron Binding Capacity 337 ug/dL (250-450) Percent Iron Saturation 46 % (15-50) Unsaturated Iron Binding 183 ug/dL (112-346) Vitamin B12 Level 504 PG/ML (193-986) Folate 19.0 NG/ML (8.6-58.9) PTH (Intact) Whole Molecule Comment (.) Parathyroid Hormone (Intact) 47 pg/mL (15-65) Ferritin 91 NG/ML (8-388) Hepatitis A IgM Antibody Negative (Negative) Hepatitis B Surface Antigen Negative (Negative) Hepatitis B Core IgM Antibody Negative (Negative) Hepatitis C Antibody <0.1 s/co ratio HIV (1&2) Antibody Rapid Negative (NEGATIVE) Test 05/11/20 05:25 White Blood Count 3.8 K/UL (4.8-10.8) Red Blood Count 3.47 M/UL (4.70-6.10) Hemoglobin 10.7 G/DL (14.2-18.0) Hematocrit 33.3 % (42.0-52.0) Mean Corpuscular Volume 96 FL (80-99) Mean Corpuscular Hemoglobin 30.9 PG (27.0-31.0) Mean Corpuscular Hemoglobin Concent 32.3 G/DL (32.0-36.0) Red Cell Distribution Width 12.2 % (11.6-14.8) Platelet Count 122 K/UL (150-450) Mean Platelet Volume 8.0 FL (6.5-10.1) Neutrophils (%) (Auto) 65.7 % (45.0-75.0) Lymphocytes (%) (Auto) 19.7 % (20.0-45.0) Monocytes (%) (Auto) 10.2 % (1.0-10.0) Eosinophils (%) (Auto) 3.7 % (0.0-3.0) Basophils (%) (Auto) 0.6 % (0.0-2.0) Sodium Level 139 MMOL/L (136-145) Potassium Level 4.2 MMOL/L (3.5-5.1) Chloride Level 108 MMOL/L (98-107) Carbon Dioxide Level 18 MMOL/L (21-32) Anion Gap 13 mmol/L (5-15) Blood Urea Nitrogen 44 mg/dL (7-18) Creatinine 2.8 MG/DL (0.55-1.30) Estimat Glomerular Filtration Rate 23.6 mL/min (>60) Glucose Level 102 MG/DL (74-106) Calcium Level 8.1 MG/DL (8.5-10.1) Total Bilirubin 0.3 MG/DL (0.2-1.0) Direct Bilirubin 0.1 MG/DL (0.0-0.3) Aspartate Amino Transf (AST/SGOT) 41 U/L (15-37) Alanine Aminotransferase (ALT/SGPT) 57 U/L (12-78) Alkaline Phosphatase 107 U/L (46-116) Total Protein 6.4 G/DL (6.4-8.2) Albumin 3.3 G/DL (3.4-5.0) Height (Feet): 5 Height (Inches): 5.00 Weight (Pounds): 237 Objective Physical Exam General Appearance: no apparent distress, obese Lines, tubes and drains: peripheral HEENT: normocephalic, atraumatic Neck: normal alignment Respiratory/Chest: lungs clear, normal breath sounds Cardiovascular/Chest: normal peripheral pulses, normal rate, regular rhythm Abdomen: non tender, soft, no organomegaly Extremities: non-tender, normal inspection, no calf tenderness Musculoskeletal: normal muscle bulk Amilcar Asif MD May 11, 2020 11:11
== END 2020-05-11 11:04 | disposition home or self-care (01) | DRG 426 ==
LOC: EDBD 14:05 → EMR 14:30 → 4E 20:55 → EDBEDREQ 21:24 → EDBEDREQSVC 21:55
DX: E87.1 Hypo-osmolality and hyponatremia (principal); T50.905A Adverse effect of unspecified drugs, medicaments and biological substances, initial encounter; F10.129 Alcohol abuse with intoxication, unspecified; N17.9 Acute kidney failure, unspecified; D61.818 Other pancytopenia; I10 Essential (primary) hypertension; K52.9 Noninfective gastroenteritis and colitis, unspecified; D64.9 Anemia, unspecified; I12.9 Hypertensive chronic kidney disease with stage 1 through stage 4 chronic kidney disease, or unspecified chronic kidney disease; N18.9 Chronic kidney disease, unspecified
CPT/HCPCS: 36415; 71045; 76700; 76770; 80048; 80053; 80076; 80307; 81003; 82044; 82306; 82570; 82607; 82728; 82746; 83540; 83550; 83735; 83930; 83935; 83970; 84100; 84439; 84443; 84481; 84484; 85025; 85610; 85730; 86703; 86705; 86709; 86803; 87340; 93005; 93306; 96361; 96374; 96375; 99285; G0480; J2405; J7030